=== PATIENT | female | born 1945 | race Caucasian/White ===

== ENCOUNTER 2017-08-01 19:15 | Emergency (ER) | payer MEDICARE ==
[2017-08-01] MEDS ORDERED: Ketorolac Tromethamine 30 MG/ML VIAL ONE (20:48)
[2017-08-01] MEDS ORDERED: Ondansetron ODT 4 MG TAB ONE (20:48)
[2017-08-01] MEDS ORDERED: Dicyclomine 20 MG TAB ONE (20:48)
[2017-08-01 21:10] LABS: #Basophils 0.1 thou/uL (0.0-0.2); #Eosinphils 0.1 thou/uL (0.0-0.7); #Lymphocytes 1.4 thou/uL (1.20-3.40); #Neutrophils 14.1 thou/uL (1.40-6.50); %Basophils 0.5 % (0.0-1.0); %Eosinophils 0.6 % (0.0-10.0); %Lymphocytes 7.7 % (21.0-51.0); %Monocytes 11.3 % (0.0-10.0); %Neutrophils 79.9 % (42.0-75.0); Hemoglobin 14.1 g/dL (12.0-16.0); Mean Corpuscular Volume 87.7 fl (81.0-99.0); Mean Platelet Volume 9.1 fL (7.4-10.4); Platelet Count 270 thou/uL (130-400); RBC Distribution Width 13.2 % (11.5-14.5); Red Blood Cell (RBC) Count 4.86 mill/uL (4.20-5.40); White Blood Cell (WBC) Count 17.6 thou/uL (4.8-10.8)
[2017-08-01 21:23] LABS: ALT (SGPT) 18 U/L (8-55); AST (SGOT) 24 U/L (5-34); Albumin 4.4 g/dL (3.4-4.8); Alkaline Phosphatase 109 U/L (40-150); Anion Gap 14 mmol/L (10-20); BUN (Urea Nitrogen) 12 mg/dL (9.8-20.1); Bilirubin, Total 0.3 mg/dL (0.2-1.2); Calc. Creatinine Clearance 0 mL/min (70-130); Calcium 10.1 mg/dL (7.8-10.44); Carbon Dioxide 29 mmol/L (23-31); Chloride 101 mmol/L (98-107); Estimated GFR-MDRD 48; Glucose 117 mg/dL (83-110); Lipase 23 U/L (8-78); Magnesium 2.2 mg/dL (1.6-2.6); Potassium 4.1 mmol/L (3.5-5.1); Protein, Total 7.4 g/dL (6.0-8.3); Sodium 140 mmol/L (136-145)
== END 2017-08-01 22:39 | disposition home or self-care (01) ==
LOC: ERS 19:15
DX: K57.92 Diverticulitis of intestine, part unspecified, without perforation or abscess without bleeding (principal); E78.5 Hyperlipidemia, unspecified; Z79.899 Other long term (current) drug therapy; Z79.82 Long term (current) use of aspirin
CPT/HCPCS: 36415; 80053; 83605; 83690; 83735; 85025; 93005; 96372; J1885; Q0162

== ENCOUNTER 2017-09-27 10:57 | Emergency (ER) | payer MEDICARE ==
--- NOTE | 2017-09-27 12:20 | RAD ---
CHEST 1 VIEW: Date: 09/27/17 HISTORY: 71-year-old female with abdominal pain and vomiting. No bowel movement or passing gas. COMPARISON: 08/07/17. FINDINGS: Right hemidiaphragm elevation. Heart size is normal. The lungs are clear. IMPRESSION: No acute intrathoracic disease. POS: [facility]
[2017-09-27 12:32] LABS: #Eosinphils 0.2 thou/uL (0.0-0.7); #Lymphocytes 2.4 thou/uL (1.20-3.40); #Monocytes 1.7 thou/uL (0.11-0.59); #Neutrophils 8.1 thou/uL (1.40-6.50); %Basophils 0.3 % (0.0-1.0); %Eosinophils 1.2 % (0.0-10.0); %Lymphocytes 19.5 % (21.0-51.0); %Monocytes 13.4 % (0.0-10.0); %Neutrophils 65.6 % (42.0-75.0); Hemoglobin 13.4 g/dL (12.0-16.0); Mean Corpuscular HGB CONC 32.9 g/dL (32.0-36.0); Mean Corpuscular Hemoglobin 28.9 pg (27.0-31.0); Mean Corpuscular Volume 87.9 fl (81.0-99.0); Mean Platelet Volume 9.9 fL (7.4-10.4); Platelet Count 245 thou/uL (130-400); RBC Distribution Width 13.4 % (11.5-14.5); Red Blood Cell (RBC) Count 4.62 mill/uL (4.20-5.40); White Blood Cell (WBC) Count 12.4 thou/uL (4.8-10.8)
[2017-09-27 12:51] LABS: ALT (SGPT) 16 U/L (8-55); AST (SGOT) 25 U/L (5-34); Albumin 4.2 g/dL (3.4-4.8); Alkaline Phosphatase 81 U/L (40-150); Anion Gap 10 mmol/L (10-20); BUN (Urea Nitrogen) 14 mg/dL (9.8-20.1); Bilirubin, Total 0.4 mg/dL (0.2-1.2); Calc. Creatinine Clearance 0 mL/min (70-130); Calcium 9.8 mg/dL (7.8-10.44); Carbon Dioxide 30 mmol/L (23-31); Chloride 101 mmol/L (98-107); Estimated GFR-MDRD 60; Globulin 2.5 g/dL (2.4-3.5); Glucose 90 mg/dL (83-110); Lipase 47 U/L (8-78); Potassium 4.2 mmol/L (3.5-5.1); Protein, Total 6.7 g/dL (6.0-8.3); Sodium 137 mmol/L (136-145)
[2017-09-27 12:55] LABS: CKMB 0.6 ng/mL (0-6.6); Troponin I Less than 0.010 ng/mL (< 0.028)
--- NOTE | 2017-09-27 15:02 | CT ---
CT OF THE ABDOMEN AND PELVIS WITHOUT IV CONTRAST: INDICATION: A 71-year-old female with abdominal pain and swelling. The patient reports recent episodes of vomiti ng that began Saturday night. The patient is also having constipation and gas. The patient has a h istory of appendicitis and ovarian cancer. COMPARISON: CT of the abdomen and pelvis dated 08/05/14. FINDINGS: The lung bases are clear. The hypodensities involving the right hepatic lobes suspicious for cysts are again noted. The lesion within the segment 5 of the right hepatic lobe on image 18 series 2 measures 2.5 x 2.2 cm where it p reviously measured 2.8 x 1.8 cm. The lesion within segment 6 measures 2 cm on image 18 series 2 wher e it previously measured 2.1 cm. These are slightly smaller than on the comparison exam. Gallbladder is surgically absent. There is postsurgical change of a partial hemicolectomy and ileoco lonic anastomosis. No drainable fluid collection is evident. The bladder, rectum, and perirectal so ft tissues are unremarkable. There is a mild amount of retained stool within the colon. The spleen is surgically absent. There is moderate calcification involving the abdominopelvic vasculature. The adrenal glands appear within normal limits. Unopacified pancreas and kidneys are unremarkable appearing. No hydronephrosi s is evident. There is diffuse osteopenia. There is scattered degenerative and osteoarthritic change. No definite acute osseous abnormality is evident. IMPRESSION: 1. Postoperative changes consistent with partial resection of the cecum and ileocolonic anastomosis. 2. Interval splenectomy and cholecystectomy. 3. Slight interval decrease in size of the right hepatic lobe cyst. 4. Other chronic findings as above. POS: [facility]
== END 2017-09-27 15:05 | disposition home or self-care (01) ==
LOC: ERS 10:57
DX: R11.2 Nausea with vomiting, unspecified (principal); R10.9 Unspecified abdominal pain; K59.00 Constipation, unspecified; Z79.82 Long term (current) use of aspirin; Z79.899 Other long term (current) drug therapy
CPT/HCPCS: 36415; 71045; 74176; 80053; 82553; 83605; 83690; 84484; 85025; 93005

== ENCOUNTER 2017-10-02 11:16 | Emergency (ER) | payer MEDICARE ==
[2017-10-02 12:55] LABS: #Basophils 0.1 thou/uL (0.0-0.2); #Eosinphils 0.1 thou/uL (0.0-0.7); #Lymphocytes 1.9 thou/uL (1.20-3.40); #Monocytes 1.4 thou/uL (0.11-0.59); #Neutrophils 9.3 thou/uL (1.40-6.50); %Basophils 0.5 % (0.0-1.0); %Eosinophils 0.5 % (0.0-10.0); %Lymphocytes 14.7 % (21.0-51.0); %Monocytes 10.8 % (0.0-10.0); %Neutrophils 73.5 % (42.0-75.0); Hemoglobin 15.3 g/dL (12.0-16.0); Mean Corpuscular HGB CONC 32.8 g/dL (32.0-36.0); Mean Corpuscular Hemoglobin 28.5 pg (27.0-31.0); Mean Corpuscular Volume 87.1 fL (78.0-98.0); Mean Platelet Volume 10.5 fL (7.4-10.4); Platelet Count 269 thou/uL (130-400); RBC Distribution Width 13.5 % (11.5-14.5); Red Blood Cell (RBC) Count 5.38 mill/uL (4.20-5.40); White Blood Cell (WBC) Count 12.7 thou/uL (4.8-10.8)
[2017-10-02 13:19] LABS: ALT (SGPT) 32 U/L (8-55); AST (SGOT) 41 U/L (5-34); Albumin 4.5 g/dL (3.4-4.8); Alkaline Phosphatase 98 U/L (40-150); Anion Gap 20 mmol/L (10-20); BUN (Urea Nitrogen) 19 mg/dL (9.8-20.1); Bilirubin, Total 0.5 mg/dL (0.2-1.2); Calc. Creatinine Clearance 0 mL/min (70-130); Calcium 9.9 mg/dL (7.8-10.44); Carbon Dioxide 22 mmol/L (23-31); Chloride 97 mmol/L (98-107); Estimated GFR-MDRD 46; Globulin 3.5 g/dL (2.4-3.5); Glucose 91 mg/dL (83-110); Lipase 30 U/L (8-78); Magnesium 2.8 mg/dL (1.6-2.6); Potassium 5.4 mmol/L (3.5-5.1); Sodium 134 mmol/L (136-145)
[2017-10-02] MEDS ORDERED: Famotidine 20 MG TAB ONE (14:26)
[2017-10-02] MEDS ORDERED: Promethazine HCl 25 MG/ML VIAL ONE (14:26)
[2017-10-02 15:25] LABS: Bilirubin Small (Negative); Blood, Urine Negative (Negative); Clarity CLOUDY (Clear); Glucose, Urine (Dipstick) Negative (Negative); Leukocyte Moderate (Negative); Nitrite Negative (Negative); Protein, Urine (Dipstick) Trace mg/dL (Neg-Trace); Specific Gravity, Urine 1.026 (1.002-1.036); Urobilinogen 0.2 mg/dL (0.2-1.0); pH, Urine 5.5 (5.0-9.0)
[2017-10-02 15:28] LABS: Bacteria/HPF None Seen HPF (None Seen); Pathc Cast-AUWi Flag 1.45 (0-2.49)
[2017-10-02 15:33] LABS: Hyaline Casts/LPF 7-10 HYALINE CAST LPF (0-3 Hyaline)
== END 2017-10-02 16:35 | disposition home or self-care (01) ==
LOC: ERS 11:16
DX: R11.2 Nausea with vomiting, unspecified (principal); R50.9 Fever, unspecified; R19.7 Diarrhea, unspecified; J45.909 Unspecified asthma, uncomplicated; Z79.82 Long term (current) use of aspirin; Z79.899 Other long term (current) drug therapy
CPT/HCPCS: 80053; 81003; 81015; 83690; 83735; 85025; 96361; 96374; J2550

== ENCOUNTER 2018-01-02 10:11 | Outpatient (CLI) | payer MEDICARE ==
--- NOTE | 2018-01-05 17:41 | EKG ---
Test Reason : Blood Pressure : / mmHG Vent. Rate : 073 BPM Atrial Rate : 073 BPM P-R Int : 118 ms QRS Dur : 072 ms QT Int : 348 ms P-R-T Axes : -08 069 058 degrees QTc Int : 383 ms Normal sinus rhythm Normal ECG When compared with ECG of 27-SEP-2017 11:50, No significant change was found Confirmed by APRIL POSEY (2) on 01/05/2018 5:41:37 PM Referred By: TERESO Confirmed By:APRIL POSEY
== END 2018-01-02 10:12 | disposition home or self-care (01) ==
LOC: LABBT 10:11
PROVIDERS: ATTEND Specialist
DX: Z01.818 Encounter for other preprocedural examination (principal); C80.1 Malignant (primary) neoplasm, unspecified
CPT/HCPCS: 93005; 93010

== ENCOUNTER 2018-01-03 06:32 | Day surgery (SDC) | payer MEDICARE ==
[2018-01-02 10:44] VITALS: BMI 23.6
--- NOTE | 2018-01-02 15:36 | HP ---
HISTORY OF PRESENT ILLNESS: Barbara Reaves is a 72-year-old female who reports to me today referred by Dr. Clem Og and Dr. Vera Monteiro for chemotherapy access. 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 She was doing well and saw Dr. Clem Og in [place] for her appendiceal tumo r service for monitoring. The patient has had colonoscopies by Dr. Parker in the past. She is follow ed by Dr. Pang. She has followed by Dr. Clem Og on the Appendiceal Tumor Service at [facility] postoperatively with serial CAT scans, found to have progression of disease, in January 2016 candelario d resection of a portion of her stomach, gallbladder, splenectomy, hysterectomy, oophorectomy, diaphr agmatic scrapings, right tube thoracostomy and underwent HIPEC treatment a 9 hour surgery, discharged 5 days postoperatively. The patient was followed with serial CAT scan, presented with a bowel obstr uction and suspicion of 2 masses and weight loss with CAT scan in the ER [facility] demonstrating multiple areas of concern undergoing laparotomy, adhesiolysis, 11 inches of small bowel resection al dedra with tumor and adhesions, unable to fully resect the tumor. The patient reports the tumor has ev olved to become more aggressive than what it was originally. 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 The patient lives independently and her daughter lives 4 houses down. PAST MEDICAL HISTORY: 1. Hyperlipidemia. 2. History of diverticulitis. 3. History of polyps. 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 5. GERD. 6. Ovarian cancer 2016 with right hemicolectomy, omentectomy, partial. 7. Diagnostic laparoscopy with biopsies 2016. 8. ____ reduction therapy in 2016 with HIPEC. PAST SURGICAL HISTORY: Cholecystectomy, partial gastrectomy, splenectomy, hysterectomy. Small bowel tumor resection, laparotomy 2018, upper and lower endoscopy 2016, tonsillectomy, reduction mammoplas ty, tubal ligation, wisdom tooth extraction. ALLERGIES: None. TOBACCO: None. ALCOHOL: None. MEDICATIONS: Takes sinus medications [id number] Claritin, p.r.n. Tylenol, aspirin, CoQ 10, vit rosario D, biotin, vitamin B. REVIEW OF SYSTEMS: Ten point noncontributory. FAMILY HISTORY: Noncontributory. PHYSICAL EXAMINATION: VITAL SIGNS: Weight 137 pounds, 64 inches, 117/55, 94, 98 degrees. HEENT: Unremarkable. LUNGS: Clear to auscultation. CARDIOVASCULAR: Regular rate and rhythm without murmur or gallop. ABDOMEN: Soft, nontender, well-healed midline incision xiphoid to pubis. No hernias. The abdomen i s soft, nondistended. No tumor masses palpated on physical exam. EXTREMITIES: Without edema. Good palpable pulses. Cranial nerves intact. No neurological deficit. ASSESSMENT AND PLAN: Mucinous adenocarcinoma appendix recurrent tumor status post multiple operation s, now in need of chemotherapy access. We will plan placement of a MediPort. Risks and benefits dis cussed. Followup p.r.n. and she will be seeing Dr. Monteiro on a routine basis and they will call me if they have any problems with the MediPort incision or MediPort function.
[2018-01-03] MEDS ORDERED: Heparin 10,000 UNITS/1 ML VIAL ONE (07:37)
[2018-01-03] MEDS ORDERED: Sodium Chloride 0.9% 0 ML ONE (07:37)
[2018-01-03] MEDS ORDERED: Lidocaine 2% PF Inj 2 ML VIAL ONE (07:37)
[2018-01-03] MEDS ORDERED: Bupivacaine HCl 0.5%/Epinephrine 1:200,000/PF 30 ml Vial ONE (07:37)
[2018-01-03] MEDS ORDERED: CEFAZOLIN/Water 2 GM/20 ML SYRINGE ONE (07:53)
--- NOTE | 2018-01-03 11:45 | RAD ---
AP VIEW CHEST: HISTORY: MediPort placement. FINDINGS: AP view chest is obtained on 01/03/18. Comparison is made to a previous exam from 09/27/17. AP view chest demonstrates placement of a right subclavian MediPort catheter, distal tip overlying th e superior vena cava. The lungs are well aerated. No evidence of active intrathoracic disease is seen. No evidence of eff usions, pneumonia, or pneumothorax seen. IMPRESSION: Unremarkable AP view chest post MediPort placement. POS: [facility]
--- NOTE | 2018-01-03 11:50 | OP ---
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 PROCEDURE: Right subclavian vein low profile MediPort. SURGEON: Dr. Molina Meng ANESTHESIA: TIVA, local 0.5% Marcaine with epinephrine 30 mL mixed with Xylocaine 10 mL. Fluoroscopy used less than 30 seconds. PROCEDURE: The patient was taken to the operating room, in supine position, neck and chest prepared with ChloraPrep, draped in routine fashion. Local anesthetic infiltrated into the skin and subcutane ous tissue about the operative site. Infraclavicular approach used for cannulation of the right subc lavian vein and introducing J wire, removed the trocar catheter and creating an incision, carried joe n skin and subcutaneous tissue, creating a pocket using cautery for hemostasis in the subcutaneous ti ssue. The dilator and pull-away sheath placed over the J-wire into the subclavian vein. Dilator and J-wire removed. Catheter placed with pull-away sheath. Pull-away sheath removed. Fluoroscopically , catheter tip placed in optimal position in the superior vena cava and catheter tailored to length, connected to the MediPort which was placed in subcutaneous pocket and secured with 2 interrupted sutu res of 3-0 Prolene. Subcutaneous tissues approximated with 3-0 Monocryl, skin with subdermal Monocry l and DermaGlue applied. MediPort accessed with a Goncalves needle and aspirated blood and flushed with heparinized saline solution. Final fluoroscopic images revealed good MediPort line placement. The p atient tolerated the procedure well.
== END 2018-01-03 11:50 | disposition home or self-care (01) ==
LOC: SDC 06:32
PROVIDERS: ATTEND Specialist
PROC: 0JH63WZ Insertion of Totally Implantable Vascular Access Device into Chest Subcutaneous Tissue and Fascia, Percutaneous Approach (ICD-10-PCS; principal; 2018-01-03)
DX: C18.1 Malignant neoplasm of appendix (principal); C78.6 Secondary malignant neoplasm of retroperitoneum and peritoneum; E78.5 Hyperlipidemia, unspecified; K21.9 Gastro-esophageal reflux disease without esophagitis; Z86.010 Personal history of colon polyps; Z79.899 Other long term (current) drug therapy; Z91.041 Radiographic dye allergy status; Z88.2 Allergy status to sulfonamides; Z88.5 Allergy status to narcotic agent; Z98.890 Other specified postprocedural states; Z90.49 Acquired absence of other specified parts of digestive tract
CPT/HCPCS: 36561; 71045; C1788; A4216; J0670; J1642; J1644

== ENCOUNTER 2018-01-17 09:38 | Outpatient (CLI) | payer MEDICARE ==
--- NOTE | 2018-01-17 16:37 | SPC ---
RIGHT UPPER EXTREMITY VENOGRAM: 01/17/18 HISTORY: Patient with mild right upper extremity swelling on occasion, and there is also prominent vessels in the right upper chest noted on physical examination. Evaluation for central thrombus or occlusion was requested. FLUOROSCOPY: Total fluoroscopy time is 1.1 minutes with total dose of 329 mGy*cm2. TECHNIQUE: After informed consent was obtained, a peripheral intravenous catheter was placed within the antecubi alex vein. Sterile contrast filled syringe was connected to the intravenous catheter, and venography w as performed. Multiple small collateral vessels are seen without definite visualization of the brachi al or basilic veins. There is multiple collateral vessels about the right upper chest and central ves sels are not opacified on this exam. Given lack of visualization of the main vessels within the right upper extremity, limited sonographic evaluation was performed which demonstrated increased luminal e chogenicity and absence of flow within the right subclavian vein and axillary vein. There are multipl e small venous structures seen within the axillary region, all of which do not demonstrate lumen comp ressibility or flow consistent with thrombus of the axillary and subclavian veins. There are paired b rachial veins, one of which demonstrates lack of lumen compressibility and flow consistent with throm bus, but there is a smaller brachial vein which does demonstrate lumen compressibility and flow. Ther e is absence of flow and lumen compressibility involving the right basilic vein. IMPRESSION: 1. 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 In addition, there is occlusion of one o f the paired brachial veins within the arm above the level of the antecubital fossa. 2. Right subclavian Mediport catheter noted in place. Multiple collateral vessels are seen about the chest likely related to the occluded central vessels. 3. Above findings discussed with Dr. Meng at the termination of this exam on 01/17/18. 1. POS: [facility]
== END 2018-01-17 09:39 | disposition home or self-care (01) ==
LOC: RAD 09:38
PROVIDERS: ATTEND Specialist
DX: C80.1 Malignant (primary) neoplasm, unspecified (principal)
CPT/HCPCS: 36011; 75820; 82565

== ENCOUNTER 2018-03-05 12:28 | Day surgery (SDC) | payer MEDICARE ==
[2018-03-05] MEDS ORDERED: diphenhydrAMINE 25 MG CAP PO SCH (13:15)
[2018-03-05] MEDS ORDERED: Acetaminophen 500 MG TAB PO SCH (13:15)
[2018-03-05 17:49] VITALS: BP 131/61; TEMP 98.6
[2018-03-05 18:48] LABS: Hemoglobin 9.9 g/dL (12.0-16.0); Mean Corpuscular HGB CONC 31.6 g/dL (32.0-36.0); Mean Corpuscular Hemoglobin 29.8 pg (27.0-31.0); Mean Corpuscular Volume 94.4 fL (78.0-98.0); Mean Platelet Volume 8.7 fL (7.4-10.4); Platelet Count 282 thou/uL (130-400); RBC Distribution Width 19.4 % (11.5-14.5); Red Blood Cell (RBC) Count 3.32 mill/uL (4.20-5.40); White Blood Cell (WBC) Count 6.9 thou/uL (4.8-10.8)
[2018-03-05 19:15] LABS: Anisocytosis SLIGHT = 6-15 cells (100X) (0-5/hpf); Band 3 % (5-11); Eosinophils 1 % (0-10); Hypochromia SLIGHT = 6-15 cells (100X) (0-5/hpf); Lymphocytes 5 % (21-51); MDiff Complete? YES; Monocytes 3 % (0-10); Neutrophil 87 % (42-75); Nucleated RBC 2 % (0); PLT Morphology Comment Appears Adequate; Target Cells SLIGHT = 2-5 cells (100X) (0-1/hpf)
== END 2018-03-05 18:45 | disposition home or self-care (01) ==
LOC: ONC/OP 12:28 → ONC 12:32 → ONC/OP 18:45
PROVIDERS: ATTEND Nurse Practitioner Acute Care
DX: D64.9 Anemia, unspecified (principal); D69.6 Thrombocytopenia, unspecified; Z88.1 Allergy status to other antibiotic agents; Z91.041 Radiographic dye allergy status; Z88.2 Allergy status to sulfonamides
CPT/HCPCS: 36415; 36430; 85025; 86850; 86900; 86901; P9016

== ENCOUNTER 2018-03-31 11:39 | Day surgery (SDC) | payer MEDICARE ==
[2018-03-31] MEDS ORDERED: Sodium Chloride 0.9% 20 ML ONE (11:49)
[2018-03-31] MEDS ORDERED: Acetaminophen 500 MG TAB PO SCH (12:30)
[2018-03-31] MEDS ORDERED: diphenhydrAMINE 25 MG CAP PO SCH (12:30)
[2018-03-31 15:30] LABS: Hemoglobin 8.5 g/dL (12.0-16.0)
[2018-03-31 17:58] VITALS: TEMP 98.7
[2018-03-31 18:01] VITALS: BP 141/63
== END 2018-03-31 18:28 | disposition home or self-care (01) ==
LOC: ONC/OP 11:39
PROVIDERS: ATTEND Internal Medicine Hematology & Oncology
PROC: 30233N1 Transfusion of Nonautologous Red Blood Cells into Peripheral Vein, Percutaneous Approach (ICD-10-PCS; principal; 2018-03-31)
DX: D64.9 Anemia, unspecified (principal); D69.6 Thrombocytopenia, unspecified
CPT/HCPCS: 36430; 82728; 85025; 86850; 86900; 86901; P9016

== ENCOUNTER 2018-05-01 13:28 | Outpatient (CLI) | payer MEDICARE ==
--- NOTE | 2018-05-01 14:51 | ULT ---
LEFT UPPER EXTREMITY VENOUS DUPLEX ULTRASOUND INCLUDING COLOR AND SPECTRAL DOPPLER IMAGING: HISTORY: Abnormal CT scan at [facility] demonstrated possible subclavian vein stenosis. Exam performed including the left internal jugular, subclavian, axillary, brachial, and radial and ul jessee veins. Basilic and cephalic veins are patent. No intraluminal thrombus. IMPRESSION: No evidence for left upper extremity deep venous thrombosis. POS: [facility]
== END 2018-05-01 13:29 | disposition home or self-care (01) ==
LOC: ULT 13:28
PROVIDERS: ATTEND Internal Medicine Hematology & Oncology
DX: C18.1 Malignant neoplasm of appendix (principal); C78.4 Secondary malignant neoplasm of small intestine; N18.2 Chronic kidney disease, stage 2 (mild); D50.8 Other iron deficiency anemias

== ENCOUNTER 2019-03-16 14:35 | Outpatient (CLI) | payer MEDICARE ==
--- NOTE | 2019-03-16 15:13 | MMO ---
Bilateral MAMMO Bilat Screen DDI+NAN. CLINICAL HISTORY: Patient is 73 years old and is seen for screening. The patient has no family history of breast cancer. The patient has a history of gi cancer at age 69. The patient has a history of bilateral Breast reduction. VIEWS: The views performed were: bilateral craniocaudal with tomosynthesis and bilateral mediolateral oblique with tomosynthesis. FILMS COMPARED: The present examination has been compared to prior imaging studies performed at [facility] on 01/16/2017, and at [facility] on 07/01/2012 and 08/05/2013. This study has been interpreted with the assistance of computer-aided detection. MAMMOGRAM FINDINGS: The breasts are almost entirely fat. There are stable benign appearing calcifications seen in both breasts. There are no suspicious masses, suspicious calcifications, or new areas of architectural distortion. IMPRESSION: THERE IS NO MAMMOGRAPHIC EVIDENCE OF MALIGNANCY. A ROUTINE FOLLOW-UP MAMMOGRAM IN 1 YEAR IS RECOMMENDED. THE RESULTS OF THIS EXAM WERE SENT TO THE PATIENT. ACR BI-RADS Category 2 - Benign finding MAMMOGRAPHY NOTE: 1. A negative mammogram report should not delay a biopsy if a dominant of clinically suspicious mass is present. 2. Approximately 10% to 15% of breast cancers are not detected by mammography. 3. Adenosis and dense breasts may obscure an underlying neoplasm. Reported by: TAWANNA VILLANUEVA MD Electonically Signed: [id number]
== END 2019-03-16 14:36 | disposition home or self-care (01) ==
LOC: BICMAMMO 14:35
PROVIDERS: ATTEND Internal Medicine Hematology & Oncology
DX: Z12.31 Encounter for screening mammogram for malignant neoplasm of breast (principal); Z85.00 Personal history of malignant neoplasm of unspecified digestive organ; Z98.890 Other specified postprocedural states
CPT/HCPCS: 77063; 77067

== ENCOUNTER 2019-08-10 08:30 | Outpatient (CLI) | payer MEDICARE ==
[2019-08-10] MEDS ORDERED: Iopamidol 370 76% 100 ML VIAL ONE (09:24)
--- NOTE | 2019-08-10 10:44 | CT ---
CT CHEST AND ABDOMEN AND PELVIS WITH IV CONTRAST: DATE: 08/10/2019. PROVIDED CLINICAL HISTORY: Vaginal discharge, history of malignant neoplasm of appendix. FINDINGS: Comparison is made with CT examination from [place] dated 06/08/[address] at [facility] 09/27/2017. The heart, pericardium, and great vessels demonstrate an unremarkable CT appearance with the exceptio n of minimal vascular calcification. There is no evidence for thoracic lymph node enlargement. The lungs are free of significant opacity. The airway appears patent and of normal caliber. No pleural fluid, pleural thickening, or pneumothorax apparent. The liver demonstrates stable cysts as well as subcentimeter hypodensities too small to definitively characterize but also likely reflecting cysts and appearing stable with respect to the 06/08/2019 stud y. The most recent [facility] prior examination was performed in the absence of IV contrast ma terial, limiting comparison. The spleen is again not visualized. Changes of prior cholecystectomy are seen. The pancreas, kidney s, and adrenal glands appear unremarkable. Postoperative changes involving the bowel are redemonstrated. There is no evidence for bowel obstruc tion. No inflammatory fat stranding, free fluid, or lymph node enlargement apparent. There is a 3.1 cm cystic structure present within the midline low pelvis with apparent small mural no dules at its posterior-right lateral margin. This appears similar to the most recent comparison exam ination from [facility]. This was not definitely seen on the prior from [facility] in 2017. The uterus demonstrates prominent internal heterogeneous enhancement and appears enlarged with respec t to the 2018 study and similar in size and appearance from the 06/08/2019 study. The osseous structures demonstrate no concerning lytic or blastic lesions. IMPRESSION: 1. A 3.1 cm complex cystic pelvic mass, which could reflect ovarian neoplasm. 2. Abnormal, heterogeneous enhancement the uterus, which also appears enlarged with respect to its a ppearance on the 2018 study. This is similar to the 2019 [facility] study. This process is incompl etely characterized by CT. Correlation with pelvic ultrasound or MRI may be useful for further tomas cterization. Endometrial or myometrial neoplasm is not excluded on the basis of this study. POS: [facility]
== END 2019-08-10 08:31 | disposition home or self-care (01) ==
LOC: CT 08:30
PROVIDERS: ATTEND Internal Medicine Hematology & Oncology
DX: C18.1 Malignant neoplasm of appendix (principal); C78.4 Secondary malignant neoplasm of small intestine; R19.00 Intra-abdominal and pelvic swelling, mass and lump, unspecified site; N85.2 Hypertrophy of uterus
CPT/HCPCS: 71260; 74177; 82565; Q9967

== ENCOUNTER 2019-09-25 09:29 | Inpatient (IN) | payer MEDICARE ==
[2019-09-25] MEDS ORDERED: Fentanyl 100 MCG/2 ML VIAL ONE ×6 (09:44→19:42)
[2019-09-25] MEDS ORDERED: Adacel (T-DAP) 0.5 ML SYRINGE ONE (09:44)
[2019-09-25] MEDS ORDERED: Ondansetron PF 4 MG/2 ML Vial ONE ×2 (09:53→10:13)
[2019-09-25 10:11] LABS: #Basophils 0.1 thou/uL (0.0-0.2); #Eosinphils 0.2 thou/uL (0.0-0.7); #Lymphocytes 3.7 thou/uL (1.20-3.40); #Monocytes 1.7 thou/uL (0.11-0.59); #Neutrophils 6.7 thou/uL (1.40-6.50); %Basophils 0.4 % (0.0-1.0); %Eosinophils 1.3 % (0.0-10.0); %Lymphocytes 30.2 % (21.0-51.0); %Monocytes 13.4 % (0.0-10.0); %Neutrophils 54.6 % (42.0-75.0); Hemoglobin 13.3 g/dL (12.0-16.0); Mean Corpuscular HGB CONC 32.6 g/dL (32.0-36.0); Mean Corpuscular Hemoglobin 29.3 pg (27.0-31.0); Mean Corpuscular Volume 89.8 fL (78.0-98.0); Mean Platelet Volume 9.3 fL (7.4-10.4); Platelet Count 295 thou/uL (130-400); RBC Distribution Width 15.5 % (11.5-14.5); Red Blood Cell (RBC) Count 4.56 mill/uL (4.20-5.40); White Blood Cell (WBC) Count 12.3 thou/uL (4.8-10.8)
[2019-09-25] MEDS ORDERED: Rocuronium Bromide 10 MG/ML (10ML VIAL) ONE (10:13)
[2019-09-25] MEDS ORDERED: Succinylcholine Chloride 20 MG/ML 10 ml SYRINGE FS ONE (10:13)
[2019-09-25] MEDS ORDERED: PROPOFOL 200 MG/20 ML VIAL ONE (10:13)
[2019-09-25] MEDS ORDERED: Lidocaine 1% PF 5 ML VIAL ONE (10:13)
[2019-09-25] MEDS ORDERED: Dexamethasone 20 MG/5 ML VIAL ONE (10:13)
[2019-09-25] MEDS ORDERED: Glycopyrrolate 0.2 MG/ML 5 ML SYRINGE ONE (10:13)
[2019-09-25 10:17] LABS: INR-International Normal Ratio 1.8; PTT 29.1 sec (22.9-36.1); Prothrombin Time 20.9 sec (12.0-14.7)
[2019-09-25 10:37] LABS: ALT (SGPT) 24 U/L (8-55); AST (SGOT) 25 U/L (5-34); Albumin 4.3 g/dL (3.4-4.8); Alkaline Phosphatase 115 U/L (40-110); Anion Gap 14 mmol/L (10-20); BUN (Urea Nitrogen) 14 mg/dL (9.8-20.1); Bilirubin, Total 0.3 mg/dL (0.2-1.2); Calc. Creatinine Clearance 0 mL/min (70-130); Calcium 9.4 mg/dL (7.8-10.44); Carbon Dioxide 24 mmol/L (23-31); Chloride 105 mmol/L (98-107); Estimated GFR-MDRD 52; Globulin 2.7 g/dL (2.4-3.5); Glucose 111 mg/dL (83-110); Potassium 3.7 mmol/L (3.5-5.1); Sodium 139 mmol/L (136-145)
[2019-09-25] MEDS ORDERED: Ketamine 50 MG/ML (10ML VIAL) ONE (11:17)
[2019-09-25] MEDS ORDERED: Dextrose 5% in Water 1,000 ML IV PRN ×2 (12:04→20:09)
[2019-09-25] MEDS ORDERED: hydrALAZINE 20 MG/ML VIAL SLOW IVP PRN ×2 (12:04→20:10)
[2019-09-25] MEDS ORDERED: Ondansetron PF 4 MG/2 ML Vial IVP PRN ×2 (12:04→18:48)
[2019-09-25] MEDS ORDERED: Dextrose 50% Abboject 50 ML SYRINGE SLOW IVP PRN ×2 (12:04→20:10)
[2019-09-25] MEDS ORDERED: Morphine 2 MG/ML SYRINGE SLOW IVP PRN ×2 (12:04→20:12)
[2019-09-25] MEDS ORDERED: Cyclobenzaprine 10 MG TAB PO PRN ×2 (12:08→20:09)
[2019-09-25] MEDS ORDERED: traMADol HCl 50 MG TAB PO PRN ×3 (12:08→20:15)
[2019-09-25] MEDS ORDERED: Sodium Chloride 0.9% 1,000 ML IV SCH ×2 (12:15→20:30)
--- NOTE | 2019-09-25 12:28 | CT ---
CT OF THE BRAIN WITHOUT CONTRAST: COMPARISON: None. HISTORY: The patient fell on her right bottom with right hip pain and open fracture. The patient hit her fore head. TECHNIQUE: Multiple contiguous axial images were obtained in a CT of the brain without contrast. FINDINGS: There are scattered hypodensities in the subcortical and periventricular white matter, likely seconda ry to small vessel ischemic disease. No large confluent infarction is seen. There is no evidence of hydrocephalus, intracranial hemorrhage, or extraaxial fluid collection. The calvarium and overlying soft tissues were unremarkable. IMPRESSION: No evidence of acute intracranial abnormality. POS: [facility]
--- NOTE | 2019-09-25 13:37 | HP ---
TRAUMA SURGEON: Dr. Grande. CONSULTING PHYSICIAN: Dr. Silva. HISTORY OF PRESENT ILLNESS: The patient is a 73-year-old female, who presented to the emergency department via EMS after a mechanical fall on Xarelto. She was a level 2 trauma activation. The patient reported she was walking her dog when her dog suddenly lunged forward and pulled her forward and she fell forward. She knew immediately that she had injuries to her right leg and right upper extremity. She denies loss of consciousness and reports she takes Xarelto due to a right upper extremity DVT from a PICC line about 2 years ago. The patient reports last taking Xarelto this morning with her other medications. She denies loss of consciousness. She denies numbness and tingling in her bilateral upper and lower extremities. REVIEW OF SYSTEMS: All additional 10-point review of systems is negative except as indicated above. 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 She has had several abdominal surgeries as a result of her cancer as well as chemotherapy, which was recently restarted. The patient also has a history of GERD and right upper extremity DVT. PAST SURGICAL HISTORY: In 2016, the patient had surgery at [facility] for splenectomy, partial colon resection, partial stomach resection as well as cholecystectomy, and hysterectomy. In 2018, she also had a small bowel resection due to a tumor causing a small bowel obstruction. SOCIAL HISTORY: The patient lives at home alone. She does not use any assistive device to get around. Her daughters are involved in her care. She denies tobacco, drug, and alcohol use. MEDICATIONS: 1. Chemotherapy recently restarted. 2. Xarelto. 3. Pantoprazole. 4. Zofran. 5. Lomotil. ALLERGIES: 1. OMEPRAZOLE. 2. SULFA DRUGS. 3. IODINE CONTRAST. 4. ERYTHROMYCIN. 5. HYDROMORPHONE. PHYSICAL EXAMINATION: VITAL SIGNS: Temperature 99.0, pulse 89, respirations 22, oxygen saturation 100% on 2 L nasal cannula, blood pressure 117/62. PRIMARY SURVEY: Airway intact. Adequate breath sounds bilaterally. 2+ pulses in bilateral radials, femorals, and DPs. GCS 15. Gross motor and sensation are intact. The patient has an avulsion laceration to her right medial forearm with bleeding controlled. No other sources or external bleeding noted. SECONDARY SURVEY: HEAD: Normocephalic and atraumatic. No gross palpable skull deformities. EYES: Pupils 3 to 2, equal, round, and reactive to light bilaterally. ENT: No signs of trauma. C-SPINE: No step-offs or deformities or tenderness to palpation of the C-spine. No C-collar in place. CHEST: Nontender. No crepitus. No abrasions or ecchymosis. Equal chest movement. ABDOMEN: Soft, nontender, and nondistended. PELVIS: Stable to palpation. Nontender. No abrasions or ecchymosis. RECTAL: Deferred. GENITOURINARY: Deferred. EXTREMITIES: The patient has an open fracture to her right forearm with bleeding controlled. There is an avulsion laceration to the right medial forearm, that is about 4 cm. The patient also has tenderness over the right anterior thigh. 2+ pulses in bilateral radials, femorals, and DPs. BACK/SPINE: No step-offs, deformities, or tenderness to palpation of the thoracic or lumbar spine. No abrasions or ecchymosis noted. 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 Gross normal sensation x4 extremities. LABORATORY FINDINGS: White count 12.3, hemoglobin 13.3, hematocrit 40.9, platelets 295. INR 1.8. Sodium 139, potassium 3.7, chloride 105, bicarb 24, BUN 14, creatinine 1.03, glucose 111. Troponin less than 0.010. DIAGNOSTIC FINDINGS: CT scan of the brain demonstrates no evidence of acute intracranial abnormalities. CT scan of the C-spine as well as x-rays of the chest, right forearm, right hip and pelvis, official reads are pending. Upon my review, there is a right radius and ulnar fracture as well as a right intertrochanteric femur fracture noted. ASSESSMENT: 1. Status post mechanical fall from standing on Xarelto. 2. Right intertrochanteric femur fracture. 3. Right open radius and ulnar fracture. 4. History of appendiceal cancer with metastasis, and gastroesophageal reflux disease. PLAN: The patient will be admitted to the Trauma Service. Dr. Silva of Orthopedic Surgery is to evaluate the patient and plans to take her to the operating room today. Emergency room physician reports he will wash out and splint the right upper extremity. We will follow up on the final reads of the remaining CT and x-rays. She will be n.p.o. She is to receive 500 mL bolus in the emergency department followed by 1 L at 70 an hour x1. We will restart her home medications as clinically indicated. Continue to hold the Xarelto. We will also order a type and screen if it has not already been completed. Postoperatively, the patient will work with Physical and Occupational Therapy and will likely need placement at an acute rehab facility. Job ID: [id number]
--- NOTE | 2019-09-25 13:43 | CT ---
CT CERVICAL SPINE WITH CORONAL AND SAGITTAL REFORMATIONS: 09/25/19 HISTORY: Injury, neck pain. FINDINGS/IMPRESSION: Multilevel degenerative changes are seen. No acute fracture, subluxation or facet malalignment is see n. Discussed over the telephone with ER physician, Dr. Laurel Polanco at 10:27 a.m. POS: [facility]
--- NOTE | 2019-09-25 13:54 | RAD ---
AP PELVIS: 09/25/19 HISTORY: Fall, right sided hip pain. FINDINGS/IMPRESSION: There is a intertrochanteric fracture involving the right femur. POS: [facility]
--- NOTE | 2019-09-25 13:56 | RAD ---
TWO VIEWS RIGHT HIP: 09/25/19 HISTORY: Fall with right hip pain. FINDINGS: Two views of the right hip shows an intertrochanteric femur fracture. No dislocation of the femoral h ead is seen. No degenerative changes are seen in the right hip. IMPRESSION: Intertrochanteric right femur fracture. POS: [facility]
--- NOTE | 2019-09-25 13:59 | RAD ---
TWO VIEWS OF THE RIGHT FOREARM: 09/25/19 COMPARISON: None. HISTORY: Fall with right arm pain. FINDINGS: Two views of the right forearm shows fracture of the distal third of the radius and ulna. These are o verlapping and foreshortened. IMPRESSION: Distal radius and ulna fractures. POS: [facility]
[2019-09-25] MEDS ORDERED: Ibuprofen 200 MG TAB PO SCH ×2 (14:00→22:00)
--- NOTE | 2019-09-25 14:10 | RAD ---
SINGLE VIEW OF THE CHEST: COMPARISON: 09/27/17 HISTORY: Fall with right arm fracture. FINDINGS: Single view of the chest shows a normal sized cardiomediastinal silhouette. There is a Mediport with its tip in the superior vena cava. There is no evidence of consolidation, mass or pleural effusions. IMPRESSION: No evidence of acute cardiopulmonary disease. POS: [facility]
--- NOTE | 2019-09-25 16:40 | RAD ---
RIGHT FOREARM TWO VIEWS: 09/25/19 HISTORY: Fracture of the right radius and ulna. Post reduction exam. FINDINGS/IMPRESSION: The displaced fractures of the shafts of the radius and ulna do not demonstrate a satisfactory interv al reduction. A cast has been placed. POS: [facility]
--- NOTE | 2019-09-25 17:53 | CON ---
DATE OF CONSULTATION: 09/25/2019 HISTORY OF PRESENT ILLNESS: The patient is a 73-year-old female who lives at home. She was walking her dog on a leash. The dog lunged forward and pulled her forward where she fell onto her right arm and right hip. She had immediate pain in the right forearm and right hip region. The patient states that she has some mild numbness in her hands and feet because of chemotherapy, but no increased neurologic deficits. The patient was brought to the emergency room. X-rays revealed displaced distal right radius and ulnar shaft fractures and an intertrochanteric fracture of the right hip. PAST MEDICAL HISTORY/MEDICAL ILLNESSES: 1. 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 2. Several abdominal surgeries. 3. DVT of the right upper extremity. 4. GERD. 5. The patient has had splenectomy. 6. Partial colon resection. 7. Partial stomach resection. 8. Cholecystectomy. 9. Hysterectomy. 10. Small bowel resection. SOCIAL HISTORY: The patient lives at home alone. She does not use tobacco, alcohol, or drugs. CURRENT MEDICATIONS: 1. Xarelto, which she has been taking for two years for her upper extremity DVT. 2. Her chemotherapy is recently restarted. 3. Pantoprazole. 4. Zofran. 5. Lomotil. ALLERGIES: TO OMEPRAZOLE, SULFA, IODINE CONTRAST, ERYTHROMYCIN, AND HYDROMORPHONE. PHYSICAL EXAMINATION: GENERAL: The patient is a very pleasant female, alert and oriented x3, cooperative with the examination. VITAL SIGNS: Temperature 98.7, pulse 82, respiratory rate 18, O2 saturation 100% on 2 L nasal cannula, and blood pressure 112/64. HEENT: The patient has some bruising over the right eye. Cranial nerves 2 through 12 are grossly intact. Intact. SPINE: She has good range of motion of her neck without pain. She is nontender in thoracic or lumbar spine. LUNGS: Clear bilaterally. HEART: Regular rate and rhythm. ABDOMEN: Soft and nontender. Bowel sounds positive. : Not done. EXTREMITIES: The patient is in a splint on the right upper extremity. She is able to flex and extend her fingers. The right lower extremity is shortened and slightly externally rotated. She is able to flex and extend her ankles and toes. She has palpable pulses in her extremities. LABORATORY DATA: White count is 12.3, hemoglobin 13.3, hematocrit 40.9, and platelets 295,000. INR is 1.8. Chemistries are normal. IMPRESSION: 1. Intertrochanteric fracture of the right hip. 2. Fracture of the right radius and ulnar shafts. 3. History of appendiceal cancer with metastasis. 4. Gastroesophageal reflux disease. PLAN: The patient will be taken to the operating room where she will undergo open reduction and internal fixation of the right radius and ulna and plan on using plate and screws, also ORIF of the intertrochanteric fracture and plan on using a trochanteric fixation nail. The patient's questions were answered and agreed to the procedure. Job ID: [id number]
[2019-09-25] MEDS ORDERED: Fleet Enema 133 ML BOT PR PRN (18:48)
[2019-09-25] MEDS ORDERED: Bisacodyl 10 MG SUPP PR PRN (18:48)
[2019-09-25] MEDS ORDERED: Ondansetron ODT 4 MG TAB PO PRN (18:48)
[2019-09-25] MEDS ORDERED: Milk Of Magnesia 30 ML UDCUP PO PRN ×2 (18:48→20:12)
[2019-09-25] MEDS ORDERED: Cepastat Lozenges 1 LOZ PO PRN (18:48)
[2019-09-25] MEDS ORDERED: Ondansetron HCl/PF 4 MG/2 ML Vial IVP PRN (18:53)
[2019-09-25] MEDS ORDERED: Promethazine HCl 25 MG/ML VIAL IM PRN (18:53)
[2019-09-25] MEDS ORDERED: Promethazine HCl 25 MG/ML VIAL SLOW IVP PRN (18:53)
--- NOTE | 2019-09-25 19:13 | RAD ---
INTRAOPERATIVE FLUOROSCOPY: 09/25/19 HISTORY: ORIF. FINDINGS: Four intraprocedural fluoroscopic views demonstrate placement of a fusion plate with screws along the distal radius and ulna. Near anatomic alignment. Fracture fragments are noted. EXPOSURE: 21.8 seconds. 0.47 mGy. IMPRESSION: Intraoperative fluoroscopy as above. POS: PPP
--- NOTE | 2019-09-25 20:15 | RAD ---
EXAM: INTRAOPERATIVE FLUOROSCOPY: 09/25/19 HISTORY: Right hip fracture, ORIF. FINDINGS: Two intraoperative fluoroscopic views demonstrate placement of a gamma nail and dynamic compression s crew traversing an intertrochanteric fracture. Near anatomic alignment. Fracture lucency is noted. EXPOSURE: 33.3 seconds. 5.43 mGy. IMPRESSION: Intraoperative fluoroscopy as above. POS: PPP
--- NOTE | 2019-09-25 20:47 | HP ---
CHIEF COMPLAINT: Fall. HISTORY OF PRESENT ILLNESS: The patient is a 73-year-old female, who was walking her dog when she lost control, it pulled her and she fell against her right side. She complained of right leg and right upper extremity pain. She is on Xarelto for history of DVT. PAST MEDICAL HISTORY: Significant for appendiceal cancer with metastasis to her cervix, she has had several abdominal surgeries from that. Partial colon resection, partial gastric resection, cholecystectomy, hysterectomy, small bowel resection. MEDICATIONS: Include; 1. Xarelto. 2. Pantoprazole. 3. Zofran. 4. Lomotil. SOCIAL HISTORY: She lives at home alone. No tobacco or alcohol use. ALLERGIES: TO OMEPRAZOLE, SULFA, IODINE, ERYTHROMYCIN, HYDROMORPHONE. PHYSICAL EXAMINATION: VITAL SIGNS: Temperature 99, pulse 89, blood pressure is 117/62. GENERAL: She is awake, alert, in no apparent distress. HEENT: She has a little bruise just to the right of her orbit. Her pupils are equal, round, and reactive. Extraocular motor intact. Pharynx clear. NECK: Supple. Nontender. Trachea midline. CHEST: Nontender. LUNGS: Clear. HEART: Regular rate and rhythm. ABDOMEN: Soft, nondistended, nontender. Pelvis is nontender. EXTREMITIES: She has an open fracture of right forearm, bleeding controlled. Avulsion laceration of right medial forearm, 4 cm. She has tenderness in the right anterior thigh. Good pulses. BACK: Nontender. NEUROLOGIC: Intact. LABORATORY DATA: White count 12, hemoglobin and hematocrit are 13 and 40, and platelet count 295. Electrolytes are fine. Glucose elevated at 111. Her PT is 20.9, INR 1.8, PTT 29.1. Chest x-ray is clear. Brain CT, clear. Cervical spine CT; degenerative changes, no acute fracture or subluxation. Forearm x-ray, distal radius-ulnar fracture. Hip film, intertrochanteric right femur fracture. Pelvis, intertrochanteric fracture of right femur. ASSESSMENT: 1. Open radial-ulnar fracture, right arm. 2. Intertrochanteric femur fracture of right leg. 3. Anticoagulation. 4. History malignancy. PLAN: Admit. Orthopedic consultation. Job ID: [id number]
[2019-09-25] MEDS ORDERED: Famotidine/PF 20 mg/2ml Vial SLOW IVP SCH ×2 (21:00)
[2019-09-25] MEDS ORDERED: Ferrous Gluconate 324 MG TAB PO SCH (21:00)
[2019-09-25] MEDS ORDERED: Senokot S 8.6-50 MG TAB PO SCH (21:00)
[2019-09-25] MEDS: Acetaminophen 500 MG TAB PO SCH ×3 (21:03→23:24)
[2019-09-25] MEDS: Ferrous Gluconate 324 MG TAB PO SCH ×2 (21:03→21:11)
[2019-09-25] MEDS: Senokot S 8.6-50 MG TAB PO SCH (21:04)
[2019-09-25] MEDS: CEFAZOLIN 2 GM in Premix Bag 1 BAG IVPB SCH (21:05)
[2019-09-25] MEDS: traMADol HCl 50 MG TAB PO PRN (22:25)
--- NOTE | 2019-09-25 22:32 | OP ---
DATE OF PROCEDURE: 09/25/2019 PREOPERATIVE DIAGNOSES: 1. Open radius and ulnar shaft fractures of the right forearm. 2. Comminuted intertrochanteric fracture of the right hip. POSTOPERATIVE DIAGNOSES: 1. Open radius and ulnar shaft fractures of the right forearm. 2. Comminuted intertrochanteric fracture of the right hip. PROCEDURES PERFORMED: 1. Irrigation and debridement of the right forearm. 2. Open reduction and internal fixation of the right radial and ulnar shafts. 3. Open reduction and internal fixation of the intertrochanteric fracture of the right hip utilizing a trochanteric fixation nail. ANESTHESIA: General. DESCRIPTION OF PROCEDURE: The patient was given preoperative IV antibiotics and taken to the operating room. Satisfactory general anesthesia was performed. The patient was placed on surgical table. The right upper extremity was sterilely prepped and draped in usual fashion. After exsanguination, tourniquet was raised to 250 mmHg at the right arm. The open wound was over the ulnar aspect of the distal forearm. It was extended proximally and distally and did communicate with the ulnar shaft fracture. The wound was copiously irrigated using a high-speed algologist. The volar radial aspect of the forearm was then opened, and the volar aspect of the radial shaft was exposed. It was reduced and then internally fixed using a [employer]ynthes 6-hole 3.5 mm LCP plate using 3.5 cortical screws and 3.5 locking screws. The ulnar shaft was then reduced and internally fixed with a 6-hole third tubular plate using 3.5 cortical screws. This was all performed under fluoroscopic visualization and showed good reduction of the radius and the ulna. The wounds were then again irrigated and closed using 0 and 2-0 Vicryl, and the skin was closed with skin himanshu. Sterile dressing was applied. The tourniquet was released. The patient was placed in a wrist immobilizer. Then, tourniquet was released and the patient was then transferred to the fracture table. All bony prominences were well padded, and the traction was applied to well-padded right foot and ankle, and C-arm verified good alignment of the comminuted intertrochanteric fracture of the proximal femur. The lateral aspect of the right hip and thigh was then sterilely prepped and draped, and a 2.5 inch incision was made just proximal to the greater trochanter and under fluoroscopic visualization, a guide pin was placed through the greater trochanter into the shaft. It was then over-reamed, and a 170 mm trochanteric fixation nail was inserted into the proximal femur and through a separate incision on the lateral aspect of the thigh that was approximately 1.5 inches in length, an 85 mm helical blade was inserted into the monica and also into the femoral neck and head. It was then locked into place and a 5 mm locking screw was placed into the distal aspect of the monica and also the femoral shaft. This provided excellent fixation for the intertrochanteric fracture. The wounds were then irrigated and closed using #2 Vicryl for the deeper tissue, 0-Vicryl for the fat and subcutaneous tissue, and skin was closed with skin himanshu. Sterile dressing was applied. The patient was taken off the fracture table. She was awakened, extubated, and transferred to recovery room in stable condition. ESTIMATED BLOOD LOSS: 150 mL. COMPLICATIONS: None. Job ID: [id number]
[2019-09-25 23:03] VITALS: BMI 28.7
[2019-09-25] MEDS ORDERED: Ketorolac Tromethamine 30 MG/ML VIAL IVP SCH (23:59)
[2019-09-26] MEDS: Acetaminophen 500 MG TAB PO SCH ×4 (03:23→20:14)
[2019-09-26] MEDS: CEFAZOLIN 2 GM in Premix Bag 1 BAG IVPB SCH (03:23)
[2019-09-26] MEDS ORDERED: Ibuprofen 200 MG TAB PO PRN (04:21)
[2019-09-26] MEDS: traMADol HCl 50 MG TAB PO PRN ×4 (04:33→22:52)
[2019-09-26 06:08] LABS: Hemoglobin 8.9 g/dL (12.0-16.0); Mean Corpuscular HGB CONC 32.9 g/dL (32.0-36.0); Mean Corpuscular Hemoglobin 29.6 pg (27.0-31.0); Mean Corpuscular Volume 89.8 fL (78.0-98.0); Mean Platelet Volume 8.8 fL (7.4-10.4); Platelet Count 214 thou/uL (130-400); RBC Distribution Width 16.1 % (11.5-14.5); White Blood Cell (WBC) Count 11.8 thou/uL (4.8-10.8)
[2019-09-26] MEDS: Multivitamin W/ Minerals 1 TAB PO SCH (08:40)
[2019-09-26] MEDS: Senokot S 8.6-50 MG TAB PO SCH ×2 (08:40→20:15)
[2019-09-26] MEDS: Aspirin 325 MG TAB PO SCH (08:40)
[2019-09-26] MEDS: Ascorbic Acid 500 mg Chewable Tablet PO SCH ×2 (08:40→20:14)
[2019-09-26] MEDS: Ferrous Sulfate 325 MG TAB PO SCH (08:41)
[2019-09-26] MEDS: Polyethylene Glycol 3350 17 GM Packet PO SCH (08:41)
[2019-09-26] MEDS: Ibuprofen 200 MG TAB PO SCH ×2 (08:43→16:45)
[2019-09-26] MEDS ORDERED: Polyethylene Glycol 3350 17 GM Packet PO SCH (09:00)
[2019-09-26] MEDS ORDERED: FERROUS SULFATE PO SCH (09:00)
--- NOTE | 2019-09-26 18:12 | PRG ---
DATE OF SERVICE: 09/26/2019 SUBJECTIVE: The patient was seen this morning. She was sitting up at the edge of the bed. She is postoperative day 1 after fixation of her right open radius and ulna fracture and right intertrochanteric femur fracture. The patient is requesting low-fat, no lactose diet. Otherwise, she tolerated her diet. She is working with Physical Therapy. OBJECTIVE: VITAL SIGNS: Temperature 98.0, pulse 96, respirations 18, oxygen saturation 95% on room air. GENERAL: Well-appearing elderly female, sitting up at the edge of the bed with no signs of acute distress. PULMONARY: Equal chest rise and fall. Clear breath sounds bilaterally. No signs of acute respiratory distress. CARDIAC: Regular rate and rhythm. GI: Abdomen is soft, nontender, and nondistended. EXTREMITIES: 2+ pulses in all extremities. Gross motor and sensation are intact. No significant swelling noted. NEUROLOGIC: GCS is 15. LABORATORY FINDINGS: White count 11.8, hemoglobin 8.9, hematocrit 26.9, platelets 214. DIAGNOSTIC FINDINGS: There are no new diagnostic findings to report. ASSESSMENT: 1. Status post mechanical fall on Xarelto. 2. Right open radius and ulna fracture. 3. Right intertrochanteric femur fracture. 4. History of appendiceal cancer with metastases; deep venous thrombosis to the right upper extremity after central line placement, currently on Xarelto. PLAN: Discontinue regular diet. Start low-fat, no lactose diet. Continue Vargas until tomorrow. Start aspirin 81 mg b.i.d. for DVT prophylaxis. Hold Xarelto. Repeat blood work in the morning. Work with Physical and Occupational Therapy. Restart the patient's home iron, Claritin, and Protonix. Job ID: [id number]
[2019-09-26] MEDS: Loratadine 10 MG TAB PO SCH (20:14)
--- NOTE | 2019-09-26 20:26 | PRG ---
DATE OF SERVICE: 09/26/2019 Ms. Reaves states that her pain is fairly well controlled. She was able to get up with physical therapy today and was able to weight bear on the right lower extremity. She has been working with the therapist with a forearm platform on her walker. She has been talking to her family and is considering going to either a longterm facility or possibly going home, where one of her daughters will take care of her. The patient is afebrile, pulse 96, respiratory rate 18, O2 saturation 95% on room air, blood pressure 141/78. The right hand has swelling as would be expected, but it is neurovascularly intact and the patient is able to flex and extend all of her digits well. The right lower extremity is also neurovascularly intact. The patient will continue to work with physical therapy as far as getting out of bed and ambulating. She can weightbear as tolerated on the right lower extremity. She needs to be nonweightbearing across the right wrist and forearm, but may bear weight over the right elbow with the platform attachment. She will discuss her possibilities after discharge with catalytic case operator. Job ID: [id number]
--- NOTE | 2019-09-27 01:34 | PDOC.BPN ---
- Brief Progress Note DATE OF SERVICE: 09/26/2019 SUBJECTIVE: Ms. Reaves remained in surgical floor. The patient was seen on round this evening. The patient reports pain is controlled. Her urine is adequate. Her vital signs have been stable. OBJECTIVE: GENERAL: Currently, the patient is lying in bed comfortable with no acute respiratory distress. VITAL SIGNS: Stable. LUNGS: Clear bilaterally. HEART: Regular rate and rhythm. ABDOMEN: Soft, nondistended. EXTREMITIES: Neurovascularly intact x4. post op dressing and splint: dry and intact ASSESSMENT: 1. Status post mechanical fall on Xeralto 2. R wrist fracture - S/P repaired 3. R hip fracture S/P repaired 3. History of Appendiceal cancer . DVT upper extremity PLAN: Plan will be to continue supportive care. Continue pain control. Continue DVT prophylaxis and pulmonary toilet. Gastritis prophylaxis. continue to work with Physical Therapy and Occupational Therapy. Anticipate placement in rehabilitation facility or half-way home facility.
[2019-09-27] MEDS: Acetaminophen 500 MG TAB PO SCH ×5 (04:33→23:19)
[2019-09-27 05:25] LABS: Anion Gap 10 mmol/L (10-20); BUN (Urea Nitrogen) 15 mg/dL (9.8-20.1); Calc. Creatinine Clearance 63 mL/min (70-130); Carbon Dioxide 28 mmol/L (23-31); Chloride 102 mmol/L (98-107); Estimated GFR-MDRD 58; Glucose 130 mg/dL (83-110); Magnesium 2.2 mg/dL (1.6-2.6); Phosphorus 2.1 mg/dL (2.3-4.7); Potassium 3.9 mmol/L (3.5-5.1); Sodium 136 mmol/L (136-145)
[2019-09-27 05:29] LABS: Band 6 % (5-11); Eosinophils 3 % (0-10); Hemoglobin 7.3 g/dL (12.0-16.0); Lymphocytes 15 % (21-51); MDiff Complete? YES; Mean Corpuscular HGB CONC 31.4 g/dL (32.0-36.0); Mean Corpuscular Hemoglobin 28.5 pg (27.0-31.0); Mean Corpuscular Volume 90.6 fL (78.0-98.0); Mean Platelet Volume 9.4 fL (7.4-10.4); Monocytes 8 % (0-10); Neutrophil 68 % (42-75); Platelet Count 178 thou/uL (130-400); Platelet Morphology Comment Appears Adequate; RBC Distribution Width 16.2 % (11.5-14.5); RBC Morphology Normal; Red Blood Cell (RBC) Count 2.57 mill/uL (4.20-5.40); White Blood Cell (WBC) Count 12.1 thou/uL (4.8-10.8)
[2019-09-27] MEDS ORDERED: Sodium Phosphate 30 MMOL in Sodium Chloride 0.9% 250 ML 250 ML IVPB SCH (08:30)
[2019-09-27] MEDS: Senokot S 8.6-50 MG TAB PO SCH ×2 (08:52→20:31)
[2019-09-27] MEDS: Multivitamin W/ Minerals 1 TAB PO SCH (08:52)
[2019-09-27] MEDS: Polyethylene Glycol 3350 17 GM Packet PO SCH (08:52)
[2019-09-27] MEDS: Ascorbic Acid 500 mg Chewable Tablet PO SCH ×2 (08:52→20:32)
[2019-09-27] MEDS: Ferrous Sulfate 325 MG TAB PO SCH (08:52)
[2019-09-27] MEDS: Aspirin 325 MG TAB PO SCH (08:52)
--- NOTE | 2019-09-27 12:15 | PRG ---
DATE OF SERVICE: 09/27/2019 SUBJECTIVE: The patient was seen this morning during rounds. She was lying in bed with no signs of acute distress. She reports working with Physical Therapy today, but becoming dizzy when she sat up. The patient became a little bit hypotensive, but then recovered. She is still a little bit woozy from her injury. She was on Xarelto. Otherwise, she is tolerating her diet, and we did discuss at length with her daughter the possibility of needing acute rehab. She would prefer to go home due to coronavirus, but she is willing to have the physical therapist re-evaluate her and speak to Case Management tomorrow. OBJECTIVE: VITAL SIGNS: Temperature 98.0, pulse 93, respirations 18, oxygen saturation 95% on room air, and blood pressure 114/72. GENERAL: Well-appearing elderly female, lying in bed with no signs of acute distress. PULMONARY: Equal chest rise and fall. Clear breath sounds bilaterally. No signs of acute respiratory distress. CARDIAC: Regular rate and rhythm. GI: Abdomen is soft, nontender, nondistended. EXTREMITIES: 2+ pulses in all extremities. Gross motor and sensation are intact. No significant swelling noted. Splint to right upper extremity is in place. NEUROLOGIC: GCS is 15. LABORATORY FINDINGS: White count 12.1, hemoglobin 7.3, hematocrit 23.2, and platelets 178. Sodium 136, potassium 5.9, chloride 102, bicarb 28, BUN 15, creatinine 0.94, glucose 130, phosphorus 2.1, and magnesium 2.0. DIAGNOSTIC FINDINGS: There are no new diagnostic findings to report. ASSESSMENT: 1. Status post mechanical fall, on Xarelto. 2. Right open radius and ulnar fracture, status post repair. 3. Right intertrochanteric femur fracture, status post repair. 4. History of appendiceal cancer with metastasis, deep venous thrombosis to right upper extremity, active PICC line, currently on Xarelto. 5. Acute hypophosphatemia. PLAN: Continue current diet and pain regimen. Continue physical and occupational therapy. The patient to receive additional fluids today with sodium phos. Hopefully, this will also help her blood pressure. She also has been encouraged to eat and drink more. She will continue to work with Physical Therapy. Vargas discontinued. The patient on aspirin right now for DVT prophylaxis. She did have still quite a bit of a hemoglobin drop today. We will monitor that tomorrow and consider restarting her Xarelto if it stabilizes. The patient is considering rehab. She would like to continue to try to improve for another day or so, but we will speak with Case Management about possible placement tomorrow. Job ID: [id number]
[2019-09-27] MEDS ORDERED: Hydrocortisone Sod Succ/PF 100 mg/2 ml Vial IVP SCH (19:15)
[2019-09-27] MEDS: Loratadine 10 MG TAB PO SCH (20:32)
[2019-09-27 22:06] LABS: Hemoglobin 6.6 g/dL (12.0-16.0); Platelet Count 170 thou/uL (130-400)
[2019-09-27] MEDS: Hydrocortisone Sod Succ/PF 100 mg/2 ml Vial IVP SCH (23:19)
--- NOTE | 2019-09-28 01:01 | PRG ---
DATE OF SERVICE: 09/27/2019 SUBJECTIVE: Ms. Reaves remained in surgical floor. The patient was seen on round this evening. The patient reports to have orthostatic. Her blood pressure dropped to high 80. When standing, the patient feels dizzy. The patient also experiencing retention, in which she had in-and out catheterization to resolve the retention. OBJECTIVE: GENERAL: Currently, the patient is lying in bed with no acute respiratory distress. VITAL SIGNS: Stable when lying down. LUNGS: Clear bilaterally. HEART: Regular rate and rhythm. ABDOMEN: Soft and nondistended. EXTREMITIES: Neurovascularly intact x4. Postop dressing clean, dry, and intact. NEUROLOGIC: No focal neurology deficits. LABORATORY DATA: Hemoglobin 6.6 ASSESSMENT: 1. Status post mechanical fall, on Xarelto. 2. Right wrist fracture, status post repair. 3. Right hip fracture, status post repair. 4. Acute adrenal insufficiency. 5. Acute blood loss anemia. 6. History of appendiceal cancer. 7. History of deep venous thrombosis of upper extremity. PLAN: We will transfuse 1 unit of packed red blood cells for acute blood loss anemia. The patient is treated with hydrocortisone for acute adrenal insufficiency. Continue pain control. Continue DVT prophylaxis and pulmonary toilet. Gastritis prophylaxis. Continue working physical therapy and occupational therapy. Placement is pending. Job ID: [id number] MTDD
[2019-09-28] MEDS: Acetaminophen 500 MG TAB PO SCH ×3 (06:02→17:35)
[2019-09-28] MEDS: Hydrocortisone Sod Succ/PF 100 mg/2 ml Vial IVP SCH ×3 (06:02→17:35)
[2019-09-28 06:27] LABS: Hemoglobin 7.8 g/dL (12.0-16.0); Mean Corpuscular HGB CONC 32.5 g/dL (32.0-36.0); Mean Corpuscular Hemoglobin 28.9 pg (27.0-31.0); Mean Corpuscular Volume 88.8 fL (78.0-98.0); Mean Platelet Volume 9.1 fL (7.4-10.4); Platelet Count 172 thou/uL (130-400); RBC Distribution Width 15.5 % (11.5-14.5); Red Blood Cell (RBC) Count 2.68 mill/uL (4.20-5.40); White Blood Cell (WBC) Count 10.5 thou/uL (4.8-10.8)
[2019-09-28 06:34] LABS: Band 20 % (5-11); Lymphocytes 10 % (21-51); MDiff Complete? YES; Monocytes 15 % (0-10); Neutrophil 55 % (42-75); Nucleated RBC 4 % (0); Platelet Morphology Comment Appears Adequate
[2019-09-28] MEDS: Aspirin 325 MG TAB PO SCH (08:08)
[2019-09-28] MEDS: Senokot S 8.6-50 MG TAB PO SCH ×2 (08:08→20:27)
[2019-09-28] MEDS: Ascorbic Acid 500 mg Chewable Tablet PO SCH ×2 (08:08→20:27)
[2019-09-28] MEDS: Multivitamin W/ Minerals 1 TAB PO SCH (08:08)
[2019-09-28] MEDS: Polyethylene Glycol 3350 17 GM Packet PO SCH (08:09)
[2019-09-28] MEDS: Ferrous Sulfate 325 MG TAB PO SCH (08:09)
--- NOTE | 2019-09-28 17:18 | PRG ---
DATE OF SERVICE: 09/28/2019 SUBJECTIVE: The patient was seen and evaluated this morning during morning rounds. She was lying upright in bed with no signs of acute distress. It was discussed with the patient that due to the nature of her current physical state, we strongly recommend continued physical therapy. We are considering either rehab or a swing bed for patient at this time. Her Xarelto is currently being held, which she was taking for prior DVT in her arm. The patient would need to be discharged to a location where her hemoglobin would continued to be monitored and then her Xarelto could be restarted when the hemoglobin is stable. It should be noted that the patient did receive 1 unit of packed red blood cells overnight as her hemoglobin yesterday was 6.6 and it rebounded to 7.8 this morning after the unit. The case management met with the patient this morning and discussed with the patient her wishes. The patient's insurance has been reviewed and a preferred skilled list has been provided to the patient for options for her to continue care with increased therapy for increased strengthening. The only complaint the patient had today was that she feels weak, with getting up to the bathroom causing her fatigue, and thus it was discussed further how increased physical therapy over the next days to weeks would likely help with her strengthening at this time. Otherwise, the patient continues to tolerate a diet and is in good spirits. OBJECTIVE: VITAL SIGNS: Temperature 98.4 Fahrenheit, pulse 80, respiratory rate 18, 100% on room air, blood pressure 139/76. GENERAL: A well-appearing elderly female, lying in bed with no signs of acute distress. PULMONARY: Equal chest rise and fall. Clear to auscultation bilaterally. No signs of acute respiratory distress. CARDIAC: Regular rate and rhythm, no murmurs appreciated. GI: Abdomen is soft , nontender, nondistended, and normal bowel sounds appreciated. EXTREMITIES: 2+ pulses. Splint to right forearm in place. Gross motor and sensation are intact. NEUROLOGIC: GCS is 15. LABORATORY FINDINGS: White count 10.5, hemoglobin 7.8, hematocrit 23.8, platelet count 172, percent neutrophil bands 20%. DIAGNOSTIC FINDINGS: There are no new diagnostic findings to report. ASSESSMENT: 1. Status post mechanical fall, on Xarelto. 2. Right open radius and ulnar fracture, status post repair. 3. Right intertrochanteric femur fracture, status post repair. 4. History of appendiceal cancer with metastasis, deep venous thrombosis to right upper extremity, active. 5. MediPort on right chest, was on Xarelto prior to hospital admission. 6. Acute hypophosphatemia, resolved. 7. Normocytic anemia, likely due to blood loss anemia, status post 1 unit packed red blood cells. PLAN: Continue current diet, bowel, and pain regimen. Continue physical and occupational therapy. The patient received 1 unit of packed red blood cells overnight and her hemoglobin is stable this morning, we will continue to monitor. The patient continues to be on aspirin for now for DVT prophylaxis. We will reconsider restarting her Xarelto when her hemoglobin is stable. Case Management discussed placement with patient today and discussed places for skilled at this time. We will continue to work with Case Management for placement. The patient would likely benefit from rehab or swing bed to help continue to monitor her hemoglobin stabilize while also providing her therapy for additional strengthening. The patient was seen and evaluated on morning rounds and the case was discussed with Dr. Jamison. Job ID: [id number] [facility]
--- NOTE | 2019-09-28 20:03 | PRG ---
DATE OF SERVICE: 09/28/2019 SUBJECTIVE: Ms. Reaves underwent ORIF of the right radial and ulnar shaft as well as ORIF of the intertrochanteric fracture of the right hip. The patient was able to get up with physical therapy three times this morning. Her pain is gradually decreasing. OBJECTIVE: VITAL SIGNS: Her last vital signs; temperature is 98.4, pulse 80, respiratory rate 18, O2 saturation 100% on room air, and blood pressure 156/77. LABORATORY DATA: This morning shows white count 10.5, hemoglobin 7.8, and hematocrit 23.8. The right lower extremity and the right hand are neurovascularly intact. The patient will continue to work with Physical and Occupational Therapy. She is working also with her family and spring encaser as far as post hospitalization placement. The patient will continue with therapy while she is here in the hospital to follow up with me in 2 weeks. Job ID: [id number]
[2019-09-28] MEDS: Loratadine 10 MG TAB PO SCH (20:27)
[2019-09-29] MEDS: Acetaminophen 500 MG TAB PO SCH ×5 (00:36→23:18)
--- NOTE | 2019-09-29 01:48 | PDOC.BPN ---
- Brief Progress Note DATE OF SERVICE: 09/28/2019 SUBJECTIVE: Ms. Reaves remained in surgical floor. The patient was seen on round this evening. The patient orthostatic resolved. Patient's retention also resolved . Patient got 3 bowel OBJECTIVE: GENERAL: Currently, the patient is lying in bed with no acute respiratory distress. VITAL SIGNS: Stable when lying down. LUNGS: Clear bilaterally. HEART: Regular rate and rhythm. ABDOMEN: Soft and nondistended. EXTREMITIES: Neurovascularly intact x4. Postop dressing clean, dry, and intact. NEUROLOGIC: No focal neurology deficits. LABORATORY DATA: Hemoglobin 6.6 ASSESSMENT: 1. Status post mechanical fall, on Xarelto. 2. Right wrist fracture, status post repair. 3. Right hip fracture, status post repair. 4. Acute adrenal insufficiency resolved 5. Acute blood loss anemia improved 6. History of appendiceal cancer. 7. History of deep venous thrombosis of upper extremity. PLAN: Continue pain control . Discontinue hydrocortisone Continue DVT prophylaxis and pulmonary toilet. Gastritis prophylaxis. Continue working physical therapy and occupational therapy. Placement is pending.
[2019-09-29 06:05] LABS: Band 6 % (5-11); Eosinophils 3 % (0-10); Hemoglobin 7.7 g/dL (12.0-16.0); Hypochromia SLIGHT = 6-15 cells (100X) (0-5/hpf); Lymphocytes 15 % (21-51); MDiff Complete? YES; Mean Corpuscular HGB CONC 32.8 g/dL (32.0-36.0); Mean Corpuscular Hemoglobin 29.4 pg (27.0-31.0); Mean Corpuscular Volume 89.6 fL (78.0-98.0); Mean Platelet Volume 8.7 fL (7.4-10.4); Monocytes 10 % (0-10); Neutrophil 66 % (42-75); Nucleated RBC 10 % (0); Platelet Count 214 thou/uL (130-400); Platelet Morphology Comment Appears Adequate; RBC Distribution Width 16.2 % (11.5-14.5); Red Blood Cell (RBC) Count 2.63 mill/uL (4.20-5.40); White Blood Cell (WBC) Count 10.4 thou/uL (4.8-10.8)
[2019-09-29] MEDS: Ascorbic Acid 500 mg Chewable Tablet PO SCH ×2 (08:42→19:39)
[2019-09-29] MEDS: Ferrous Sulfate 325 MG TAB PO SCH (08:42)
[2019-09-29] MEDS: Aspirin 325 MG TAB PO SCH (08:42)
[2019-09-29] MEDS: Multivitamin W/ Minerals 1 TAB PO SCH (08:42)
[2019-09-29] MEDS: Senokot S 8.6-50 MG TAB PO SCH ×2 (08:45→19:39)
[2019-09-29] MEDS: Polyethylene Glycol 3350 17 GM Packet PO SCH (08:45)
--- NOTE | 2019-09-29 16:29 | PRG ---
DATE OF SERVICE: 09/29/2019 SUBJECTIVE: The patient was seen and evaluated this morning during morning rounds. She was lying upright in bed with no signs of acute distress. The patient had no concerns or complaints at this time. She continues to tolerate her diet well, voids and stools well. She also continues to work with Physical Therapy at this time and although none of her goals have been met, she continues to make progress. It has been suggested for the patient to transfer over to the [facility] so that she could be monitored by a physician as this would not be possible at the [facility] at this time. The patient is currently waiting for acceptance for the [facility]. We have discussed that her hemoglobin is stable today and thus if it continues to be stable through tomorrow, then we will restart her Xarelto at that time. The patient continues to do well and is in good spirits. OBJECTIVE: VITAL SIGNS: Temperature 98.6 Fahrenheit, pulse 78, respiratory rate 16, oxygen saturation 100% on room air, blood pressure 149/77. GENERAL: Well-appearing elderly female, lying in bed with no acute signs of distress. PULMONARY: Equal chest rise and fall. Clear to auscultation bilaterally. No signs of acute respiratory distress. CARDIAC: Regular rate and rhythm. No murmurs appreciated. GASTROINTESTINAL: Abdomen is soft, nontender, and nondistended. Normal bowel sounds. EXTREMITIES: 2+ pulses throughout with normal sensation and motor grossly. Splint to right forearm in place. Bandaging to right hip in place. NEUROLOGIC: GCS is 15. LABORATORY FINDINGS: White count 10.4, hemoglobin 7.7, hematocrit 23.5, platelets 214, bands 6. IMAGING STUDIES: No new imaging to report. ASSESSMENT: 1. Status post mechanical fall, on Xarelto. 2. Right open radius and ulnar fracture, status post repair. 3. Right intertrochanteric femur fracture, status post repair. 4. History of metastatic appendiceal cancer, deep venous thrombosis to right upper extremity, and gastroesophageal reflux disease. 5. MediPort on right chest, was on Xarelto prior to hospital administration. 6. Acute hypophosphatemia, resolved. 7. Normocytic anemia, likely due to blood loss anemia, status post 1 unit of packed red blood cells, stable. PLAN: Continue current diet, bowel, and pain regimens. Continue physical and occupational therapy. Continue to monitor hemoglobin and hematocrit, and can consider restarting Xarelto tomorrow if the hemoglobin remains stable at that time. Case Management working for placement for the patient and the patient is considering [facility] at this time for continued physical therapy. We will continue to discuss with Case Management. The patient was seen and evaluated on morning rounds. The case was discussed with Dr. Jamison, who was agreeable with the plan of care. Job ID: [id number] [facility]
[2019-09-29] MEDS: Loratadine 10 MG TAB PO SCH (19:39)
[2019-09-30 03:56] LABS: Band 3 % (5-11); Hemoglobin 8.2 g/dL (12.0-16.0); Lymphocytes 35 % (21-51); MDiff Complete? YES; Mean Corpuscular HGB CONC 32.1 g/dL (32.0-36.0); Mean Corpuscular Volume 90.2 fL (78.0-98.0); Mean Platelet Volume 8.6 fL (7.4-10.4); Monocytes 14 % (0-10); Neutrophil 48 % (42-75); Nucleated RBC 8 % (0); Platelet Count 242 thou/uL (130-400); Platelet Morphology Comment Appears Adequate; RBC Distribution Width 16.5 % (11.5-14.5); Red Blood Cell (RBC) Count 2.83 mill/uL (4.20-5.40); White Blood Cell (WBC) Count 9.3 thou/uL (4.8-10.8)
[2019-09-30 04:07] LABS: Anion Gap 13 mmol/L (10-20); BUN (Urea Nitrogen) 16 mg/dL (9.8-20.1); Calc. Creatinine Clearance 75 mL/min (70-130); Calcium 8.2 mg/dL (7.8-10.44); Carbon Dioxide 25 mmol/L (23-31); Chloride 108 mmol/L (98-107); Estimated GFR-MDRD 71; Glucose 95 mg/dL (83-110); Magnesium 2.1 mg/dL (1.6-2.6); Potassium 3.7 mmol/L (3.5-5.1); Sodium 142 mmol/L (136-145)
[2019-09-30] MEDS: Acetaminophen 500 MG TAB PO SCH ×4 (06:27→23:52)
[2019-09-30] MEDS ORDERED: Potassium Chloride 20 MEQ TAB PO SCH (07:00)
[2019-09-30] MEDS: Ascorbic Acid 500 mg Chewable Tablet PO SCH ×2 (08:48→20:44)
[2019-09-30] MEDS: Multivitamin W/ Minerals 1 TAB PO SCH (08:48)
[2019-09-30] MEDS: Ferrous Sulfate 325 MG TAB PO SCH (08:48)
[2019-09-30] MEDS: Rivaroxaban 10 MG TAB PO SCH (08:49)
[2019-09-30] MEDS: Senokot S 8.6-50 MG TAB PO SCH (08:49)
[2019-09-30] MEDS: Aspirin 325 MG TAB PO SCH (08:49)
[2019-09-30] MEDS: Polyethylene Glycol 3350 17 GM Packet PO SCH (08:49)
[2019-09-30] MEDS ORDERED: Non-Formulary Item 1 EACH (Rivaroxaban [Xarelto] 20 MG) PO SCH (09:00)
[2019-09-30] MEDS ORDERED: Preparation H Ointment 28 GM TUBE TOP PRN (11:03)
[2019-09-30] MEDS: Loperamide HCl 2 MG CAP PO PRN ×2 (11:07→13:15)
--- NOTE | 2019-09-30 16:03 | PRG ---
DATE OF SERVICE: 09/30/2019 SUBJECTIVE: The patient was evaluated today during morning rounds. She was sitting upright in the chair next to the bed, in no acute distress at this time. She reports that she started to have diarrhea yesterday. She reports that this is a chronic issue for her at home, where she will go intermittently between diarrhea and constipation. She reports that she usually takes Imodium and Lomotil at home, which were both started today. She continues to work well with physical therapy at this time. She reports slight right thumb numbness, but this has been constant since her surgery. She does endorse complete movement of all her fingers and otherwise normal sensation of her hand. We are currently waiting for acceptance to the [facility] bed for patient. It was discussed that her hemoglobin was stable overnight and her Xarelto was restarted this morning, and we will continue to monitor her hemoglobin status on the Xarelto. OBJECTIVE: VITAL SIGNS: Temperature 98 Fahrenheit, pulse 85, respiratory rate 14, 99% on room air, blood pressure 124/75. GENERAL: Elderly female sitting upright in chair next to bed, in no acute distress. HEENT: Normocephalic and atraumatic. Trachea midline. RESPIRATORY: Equal rise and fall, clear to auscultation bilaterally. CARDIAC: Regular rate and rhythm. ABDOMEN: Soft, nontender, positive bowel sounds. MUSCULOSKELETAL: Right arm in Jose bandaging and splint at this time. Some numbness of her right thumb on the dorsal side. Otherwise, sensation intact and motor intact throughout. NEUROLOGIC: Sensation and motor intact throughout unless otherwise described. PSYCH: A and O x4. LABORATORY FINDINGS: White count 9.3, hemoglobin 8.2, hematocrit 25.5, platelet 242. Sodium 142, potassium 3.7, chloride 108, carbon dioxide 25, BUN 16, creatinine 0.79, GFR 71, phosphorus 3.0, Mag 2.1. DIAGNOSTIC IMAGING: None. ASSESSMENT: 1. Status post mechanical fall, on Xarelto. 2. Right open radius and ulna fracture, status post repair. 3. Right intertrochanteric femur fracture, status post repair. 4. History of metastatic appendiceal cancer, deep venous thrombosis to right upper extremity, and gastroesophageal reflux disease. 5. MediPort on right chest, was on Xarelto prior to hospitalization. 6. Acute hypophosphatemia, resolved. 7. Normocytic anemia, likely due to blood loss anemia, status post 1 unit of packed red blood cells, stable. PLAN: Continue current diet and pain regimen. We will hold stool softeners, and add Imodium and Lomotil to patient's regimen. We will continue physical and occupational therapy at this time. The patient's hemoglobin has remained stable and we restarted Xarelto at this time. Case management working for placement for the patient with goal for her to go to the swing bed in [place] for continued monitoring of her hemoglobin and hematocrit over the next several days. The patient was seen and evaluated on morning rounds by Dr. Jamison and the case was discussed with him, who was agreeable with the plan of care. Job ID: [id number] [facility]
[2019-09-30 17:44] LABS: Bilirubin Negative (Negative); Blood, Urine Moderate (Negative); Glucose, Urine (Dipstick) Negative (Negative); Leukocyte Small (Negative); Nitrite Positive (Negative); Protein, Urine (Dipstick) Trace mg/dL (Neg-Trace); Urobilinogen 0.2 mg/dL (Less than 2)
[2019-09-30 17:47] LABS: Clarity Turbid (Clear)
[2019-09-30 17:50] LABS: Bacteria/HPF 4+ HPF (None Seen); Squamous Epithelial 0-3 HPF (0-3); Transitional Epithelial 0-3 HPF (None Seen); WBC/HPF 21-50 HPF (0-3)
[2019-09-30 17:51] LABS: Urine Culture Reflex Yes Yes
[2019-09-30] MEDS: Loratadine 10 MG TAB PO SCH (20:43)
[2019-09-30] MEDS: Ciprofloxacin 500 MG TAB PO SCH (20:44)
--- NOTE | 2019-09-30 21:16 | PRG ---
DATE OF SERVICE: 09/30/2019 SUBJECTIVE: Ms. Reaves is status post ORIF of a right hip fracture and right distal radius and ulnar shaft fractures. The patient states that she is doing well. She has good pain control. OBJECTIVE: VITAL SIGNS: Her last vital signs; temperature 97.9, pulse 82, respiratory rate 18, blood pressure 139/66, and O2 saturation 97% on room air. LABORATORY DATA: White count is 9.3, hemoglobin 8.2, and hematocrit 25.5. Dressing was changed on the right wrist. The incision over the radius and ulna is healing very well. The patient is able to flex and extend all of her digits well. PLAN: The patient is having arrangements made to go to [facility] bed. She will follow up with me in 2 to 3 weeks from the surgeries. She can weightbear as tolerated on the right lower extremity, but needs to avoid any type of weightbearing across the right forearm. Job ID: [id number]
[2019-10-01] MEDS: Acetaminophen 500 MG TAB PO SCH ×2 (06:08→13:44)
[2019-10-01] MEDS: Ciprofloxacin 500 MG TAB PO SCH (06:08)
[2019-10-01 06:54] LABS: Band 3 % (5-11); Eosinophils 1 % (0-10); Hemoglobin 8.2 g/dL (12.0-16.0); Hypochromia SLIGHT = 6-15 cells (100X) (0-5/hpf); Lymphocytes 13 % (21-51); MDiff Complete? YES; Mean Corpuscular HGB CONC 32.7 g/dL (32.0-36.0); Mean Corpuscular Hemoglobin 30.1 pg (27.0-31.0); Mean Corpuscular Volume 91.9 fL (78.0-98.0); Mean Platelet Volume 8.9 fL (7.4-10.4); Monocytes 9 % (0-10); Neutrophil 74 % (42-75); Nucleated RBC 22 % (0); Platelet Count 270 thou/uL (130-400); Platelet Morphology Comment Appears Adequate; RBC Distribution Width 18.4 % (11.5-14.5); Red Blood Cell (RBC) Count 2.74 mill/uL (4.20-5.40); White Blood Cell (WBC) Count 8.1 thou/uL (4.8-10.8)
[2019-10-01] MEDS: Rivaroxaban 10 MG TAB PO SCH (09:02)
[2019-10-01] MEDS: Ascorbic Acid 500 mg Chewable Tablet PO SCH (09:02)
[2019-10-01] MEDS: Multivitamin W/ Minerals 1 TAB PO SCH (09:02)
[2019-10-01] MEDS: Ferrous Sulfate 325 MG TAB PO SCH (09:06)
[2019-10-01] MEDS: Polyethylene Glycol 3350 17 GM Packet PO SCH (11:17)
[2019-10-01 16:06] VITALS: BP 124/74; TEMP 98.1
--- NOTE | 2019-10-01 20:52 | DIS ---
DATE OF ADMISSION: 09/25/2019 DATE OF DISCHARGE: 10/01/2019 ADMISSION DIAGNOSES: Mechanical fall, on Xarelto, right open radius and ulnar fracture, right intertrochanteric femur fracture. DISCHARGE DIAGNOSES: Mechanical fall, on Xarelto, right open radius and ulnar fracture, right intertrochanteric femur fracture with the addition of urinary tract infection, complicated. CONSULTING PHYSICIAN: Dr. Silva of Orthopedic Surgery. PROCEDURES: The patient went to the OR on September 25, 2019, and had I and D of the right forearm, ORIF of the right radial and ulnar shafts, and ORIF of the right intertrochanteric fracture with nail. HOSPITAL COURSE: The patient is a 73-year-old female who presented after mechanical fall, on Xarelto, as a level 2 trauma activation. She had a right open radius and ulnar fracture, right intertrochanteric femur fracture and was admitted to the hospital, went to the OR the same day with Dr. Silva. Postoperatively, the patient worked with Physical and Occupational Therapy. She was ultimately discharged to a swing bed. 2 days before discharge, the patient reported burning with urination and was found to have urinary tract infection. She was started on Cipro for 7 days. At the time of discharge, the patient's pain was well controlled. She was tolerating a regular diet, voiding without difficulties, working with Physical Therapy and her home Xarelto had been restarted. DISCHARGE DISPOSITION: Swing bed. DISCHARGE CONDITION: Satisfactory. PHYSICAL EXAMINATION: VITAL SIGNS: Temperature 98.2, pulse 83, respirations 16, oxygen saturation 97 % on room air, and blood pressure 105/66. GENERAL: Well-appearing elderly female, sitting up in bed with no signs of acute distress. PULMONARY: Equal chest rise and fall. Clear breath sounds bilaterally. No signs of acute respiratory distress. CARDIAC: Regular rate and rhythm. GI: Abdomen is soft, nontender, nondistended. EXTREMITIES: 2+ pulses in all extremities. Gross motor and sensation are intact. No significant swelling noted. NEUROLOGIC: GCS 15. DISCHARGE INSTRUCTIONS: The patient was discharged to a swing bed. Activity as tolerated. Nonweightbearing in the right upper extremity with a platform walker. She had a low-fat diet. PT/OT. Incentive spirometry and a walker. DISCHARGE MEDICATIONS: Include: 1. Tylenol. 2. Vitamin C. 3. Biotin. 4. Calcium carbonate. 5. Vitamin D. 6. Cipro x7 days. 7. Lomotil. 8. Ferrous sulfate. 9. Glucosamine-Chondroitin complex. 10. Imodium. 11. Claritin. 12. Multivitamins. 13. Protonix. 14. MiraLAX. 15. Compazine. 16. Xarelto. 17. Tramadol. FOLLOWUP APPOINTMENTS: The patient is to follow up with Dr. Silva. No followup needed with [facility]uma [facility]. This is a summary of the patient's hospitalization. For full details, please see her medical record in its entirety. The patient was seen and evaluated by Dr. Jamison and myself on the day of discharge. Job ID: [id number] [facility]
--- NOTE | 2019-10-03 12:15 | EKG ---
Test Reason : Blood Pressure : / mmHG Vent. Rate : 093 BPM Atrial Rate : 093 BPM P-R Int : 146 ms QRS Dur : 082 ms QT Int : 350 ms P-R-T Axes : 066 048 048 degrees QTc Int : 435 ms Normal sinus rhythm Normal ECG Confirmed by JO ANN HORVATH DO ([id number]), slot editor RENNY MESA ([id number]) on 10/03/2019 12:15:22 PM Referred By: Confirmed By:JO ANN HORVATH DO
== END 2019-10-01 17:00 | disposition swing bed (61) | DRG 956 ==
LOC: ERS 09:29 → SDC/OP 19:15 → SURG A 19:19
PROVIDERS: ADMIT Surgery; ATTEND Surgery
PROC: 0QS604Z Reposition Right Upper Femur with Internal Fixation Device, Open Approach (ICD-10-PCS; principal; 2019-09-25)
PROC: 0PSH04Z Reposition Right Radius with Internal Fixation Device, Open Approach (ICD-10-PCS; 2019-09-25)
PROC: 0PSK04Z Reposition Right Ulna with Internal Fixation Device, Open Approach (ICD-10-PCS; 2019-09-25)
PROC: 30233N1 Transfusion of Nonautologous Red Blood Cells into Peripheral Vein, Percutaneous Approach (ICD-10-PCS; 2019-09-27)
DX: S72.141A Displaced intertrochanteric fracture of right femur, initial encounter for closed fracture (principal); S52.501B Unspecified fracture of the lower end of right radius, initial encounter for open fracture type I or II; S52.601B Unspecified fracture of lower end of right ulna, initial encounter for open fracture type I or II; E27.40 Unspecified adrenocortical insufficiency; D62 Acute posthemorrhagic anemia; N39.0 Urinary tract infection, site not specified; W18.39XA Other fall on same level, initial encounter; K21.9 Gastro-esophageal reflux disease without esophagitis; E83.39 Other disorders of phosphorus metabolism; Y93.K1 Activity, walking an animal; Z85.41 Personal history of malignant neoplasm of cervix uteri; Z85.89 Personal history of malignant neoplasm of other organs and systems; Z86.718 Personal history of other venous thrombosis and embolism; Z92.21 Personal history of antineoplastic chemotherapy; Z90.49 Acquired absence of other specified parts of digestive tract; Z90.81 Acquired absence of spleen; Z88.2 Allergy status to sulfonamides; Z88.1 Allergy status to other antibiotic agents; Z88.8 Allergy status to other drugs, medicaments and biological substances; Z91.041 Radiographic dye allergy status; Z79.01 Long term (current) use of anticoagulants; Z90.710 Acquired absence of both cervix and uterus
CPT/HCPCS: 25505; 25535; 36415; 36430; 70450; 71045; 72125; 72170; 76000; 80048; 80053; 81001; 82533; 83735; 84100; 84484; 85025; 85027; 85610; 85730; 86850; 86900; 86901; 87077; 87086; 87186; 90471; 90715; 93005; 96365; 96375; 96376; 99152; C1713; G0390; J0690; J1100; J1720; J2001; J2270; J2405; J2704; J3010; J7050; P9016; S0028

== ENCOUNTER 2020-04-13 09:15 | Outpatient (CLI) | payer MEDICARE ==
--- NOTE | 2020-04-13 10:41 | CT ---
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 COMPARISON: 01/13/2020 and on 06/04/2018 FINDINGS: CT THORAX: Lungs: Minimal symmetric biapical pleural and parenchymal scarring. No discrete pulmonary nodule, mas s, or pleural effusion is identified. A pleural-based tiny calcification is seen at the posteromedial right lung base. Large airways are patent. Pleura: No pleural effusion. Lymph nodes: No lymphadenopathy. Mediastinum: Right subclavian Mediport catheter remains in place. Vascular calcifications are seen in the thoracic aorta. Chest wall: Postoperative changes of each breast are seen. CT ABDOMEN AND PELVIS: Liver: Stable hepatic cysts are again present. There are a few scattered subcentimeter too small to c haracterize hypodense lesions also again seen in each lobe of the liver. Gallbladder: Surgically absent.\ Pancreas: Within normal limits. Spleen:Surgically absent. Adrenal glands: Within normal limits. Kidneys: Within normal limits. Urinary Bladder: The urinary bladder is unremarkable. Reproductive organs: There are low-attenuation cystic areas seen in the region of the expected locati on of the uterus. However, the patient gives report of a prior hysterectomy. Correlation for evidence of prior hysterectomy is recommended. If the patient has had prior hysterectomy, this may re present a complex cystic masslike lesion involving the cervix measuring 4.3 cm x 3.5 cm in axial dimensions. A 1.4 cm hypodense cystic appearing structure projects posteriorly from this structure as well which does abut the region of the rectosigmoid junction. Bowel: Normal in caliber. Adenopathy:No lymphadenopathy within the abdomen or pelvis. Peritoneum: Again noted is a hypodense cystic appearing structure in the central lower pelvis measuri ng 3.1 cm with associated calcification at the superior margin of this cystic structure. This is superior to the level of the urinary bladder. Abdominal wall: Midline scarring in the infraumbilical location. Osseous structures: Postoperative changes right hip. Degenerative changes are noted in the lumbar spi ne. No suspicious lytic or sclerotic osseous lesions are seen. IMPRESSION: Stable CT scan chest, abdomen, and pelvis including cystic masslike structure in the midline inferior pelvis with heterogeneity and cystic appearing area within the expected location of the uterus. However, the patient does report history of a prior hysterectomy. Correlation with prior surgical his tory is recommended. If this does not represent the patient's uterus, this may represent a complex cystic masslike lesion involving the region of the cervix. A hypodense cystic appearing structure pro jects posteriorly from this structure as well and abuts the region of the rectosigmoid junction.
== END 2020-04-13 09:16 | disposition home or self-care (01) ==
LOC: CT 09:15
PROVIDERS: ATTEND Internal Medicine Hematology & Oncology
DX: C78.4 Secondary malignant neoplasm of small intestine (principal); C18.1 Malignant neoplasm of appendix
CPT/HCPCS: 71260; 74177; 82565

== ENCOUNTER 2020-07-21 09:36 | Outpatient (CLI) | payer MEDICARE | END 2020-07-21 09:37 | disposition home or self-care (01) | LOC: BICRAD 09:36 | PROVIDERS: ATTEND Internal Medicine Hematology & Oncology | DX: D50.9 Iron deficiency anemia, unspecified (principal); C18.1 Malignant neoplasm of appendix; C78.4 Secondary malignant neoplasm of small intestine; D50.8 Other iron deficiency anemias; N39.0 Urinary tract infection, site not specified | CPT/HCPCS: 71046; 81001; 87086 ==

== ENCOUNTER 2020-07-28 07:55 | Outpatient (CLI) | payer MEDICARE ==
[2020-07-28] MEDS ORDERED: Iopamidol 370 76% 100 ML VIAL ONE (12:56)
== END 2020-07-28 07:56 | disposition home or self-care (01) ==
LOC: CT 07:55
PROVIDERS: ATTEND Internal Medicine Hematology & Oncology
DX: C18.1 Malignant neoplasm of appendix (principal); C78.4 Secondary malignant neoplasm of small intestine; K76.89 Other specified diseases of liver
CPT/HCPCS: 71260; 74177; 82565; Q9967

== ENCOUNTER 2021-09-12 07:30 | Outpatient (CLI) | payer MEDICARE ==
[2021-09-12] MEDS ORDERED: Iopamidol 370 76% 100 ML VIAL ONE (09:53)
== END 2021-09-12 07:31 | disposition home or self-care (01) ==
LOC: CT 07:30
PROVIDERS: ATTEND Nurse Practitioner Family
DX: C26.9 Malignant neoplasm of ill-defined sites within the digestive system (principal); R19.5 Other fecal abnormalities; N94.89 Other specified conditions associated with female genital organs and menstrual cycle
CPT/HCPCS: 71275; 74178; Q9967

== ENCOUNTER 2021-11-14 13:30 | Outpatient (CLI) | payer MEDICARE | END 2021-11-14 13:31 | disposition home or self-care (01) | LOC: BICRAD 13:30 | PROVIDERS: ATTEND Physician Assistant Medical | DX: K59.09 Other constipation (principal); K64.9 Unspecified hemorrhoids; C18.1 Malignant neoplasm of appendix; C78.4 Secondary malignant neoplasm of small intestine; N39.0 Urinary tract infection, site not specified | CPT/HCPCS: 74019; 81001; 87086 ==

== ENCOUNTER 2021-12-28 15:10 | Inpatient (IN) | payer MEDICARE ==
[~2021-12-28 15:10] MED LIST: Iopamidol-370 76% 500 ML 1 ML ONE
[2021-12-28] MEDS ORDERED: diphenhydrAMINE 50 MG/ML VIAL ONE (15:59)
[2021-12-28] MEDS ORDERED: methylPREDNISolone Sod Succ 40 MG VIAL ONE (15:59)
[2021-12-28] MEDS ORDERED: Famotidine/PF 20 mg/2ml Vial ONE (15:59)
[2021-12-28 16:09] LABS: Hemoglobin 9.2 g/dL (12.0-16.0); Mean Corpuscular HGB CONC 31.4 g/dL (32.0-36.0); Mean Corpuscular Hemoglobin 26.3 pg (27.0-31.0); Mean Corpuscular Volume 83.8 fL (78.0-98.0); Mean Platelet Volume 9.8 fL (7.4-10.4); Platelet Count 443 thou/uL (130-400); RBC Distribution Width 16.1 % (11.5-14.5); Red Blood Cell (RBC) Count 3.48 mill/uL (4.20-5.40); White Blood Cell (WBC) Count 21.5 thou/uL (4.8-10.8)
[2021-12-28 16:28] LABS: ALT (SGPT) 13 U/L (8-55); AST (SGOT) 19 U/L (5-34); Albumin 3.1 g/dL (3.4-4.8); Alkaline Phosphatase 159 U/L (40-110); Anion Gap 14 mmol/L (10-20); BUN (Urea Nitrogen) 10 mg/dL (9.8-20.1); Bilirubin, Total 0.3 mg/dL (0.2-1.2); Calc. Creatinine Clearance 0 mL/min (70-130); Calcium 8.4 mg/dL (7.8-10.44); Carbon Dioxide 24 mmol/L (23-31); Chloride 101 mmol/L (98-107); Estimated GFR 73; Globulin 3.1 g/dL (2.4-3.5); Glucose 148 mg/dL (83-110); Lipase 9 U/L (8-78); Magnesium 1.5 mg/dL (1.6-2.6); Potassium 3.3 mmol/L (3.5-5.1); Protein, Total 6.2 g/dL (5.8-8.1); Sodium 136 mmol/L (136-145)
[2021-12-28] MEDS ORDERED: Cefepime 2 GM VIAL ONE (16:29)
[2021-12-28 16:36] LABS: Anisocytosis SLIGHT = 6-15 cells (100X) (0-5/hpf); Band 12 % (5-11); Eosinophils 2 % (0-10); Hypochromia SLIGHT = 6-15 cells (100X) (0-5/hpf); Lymphocytes 4 % (21-51); MDiff Complete? YES; Monocytes 6 % (0-10); Neutrophil 74 % (42-75); Nucleated RBC 1 % (0); Platelet Morphology Comment Appears Increased; Polychromasia MODERATE = 3-4 cells (100X) (0-2/hpf); Target Cells SLIGHT = 2-5 cells (100X) (0-1/hpf); Tear Drops SLIGHT = 2-5 cells (100X) (0-1/hpf); Vacuoles SLIGHT
[2021-12-28 17:45] LABS: Bacteria/HPF 1+ HPF (None Seen); Bilirubin Negative (Negative); Blood, Urine Negative (Negative); Clarity Clear (Clear); Glucose, Urine (Dipstick) Normal (Negative); Ketone, Urine Negative (Negative); Leukocyte 250 Leu/uL (Negative); Nitrite 2+ (Negative); Protein, Urine (Dipstick) Negative (Neg-Trace); RBC/HPF 0-3 HPF (0-3); Squamous Epithelial 0-3 HPF (0-3); Urobilinogen Normal mg/dL (Less than 2); WBC/HPF 21-50 HPF (0-3)
[2021-12-28] MEDS ORDERED: Magnesium 2 GM/50 ML(in water) 2 GM in Premix Bag 1 BAG IVPB SCH (17:45)
[2021-12-28] MEDS ORDERED: Gabapentin 300 MG CAP PO SCH (17:45)
[2021-12-28] MEDS ORDERED: VANCOMYCIN 1.75 GM/500 ML BAG 1.75 GM in Premix Bag 1 BAG IVPB SCH (19:00)
[2021-12-28] MEDS ORDERED: Acetaminophen 325 MG TAB PO PRN (20:07)
[2021-12-28] MEDS ORDERED: Potassium Chloride 20 MEQ TAB PO SCH (20:15)
[2021-12-28] MEDS ORDERED: Vancomycin 1 GM in Premix Bag 1 BAG IVPB SCH (21:00)
[2021-12-28] MEDS: Sodium Chloride 0.9% 1,000 ML IV SCH (22:20)
[2021-12-28] MEDS: Gabapentin 300 MG CAP PO SCH (22:20)
[2021-12-28 22:23] VITALS: BMI 26.6
[2021-12-28] MEDS ORDERED: Piperacillin/Tazobactam 3.375 GM in Sodium Chloride 0.9% 100 ML IVPB SCH (23:59)
[2021-12-29] MEDS: Piperacillin/Tazobactam 3.375 GM in Sodium Chloride 0.9% 100 ML IVPB SCH ×3 (04:14→19:34)
[2021-12-29 05:39] LABS: #Lymphocytes 2.3 thou/uL (1.20-3.40); #Monocytes 1.2 thou/uL (0.11-0.59); #Neutrophils 11.8 thou/uL (1.40-6.50); %Basophils 0.2 % (0.0-1.0); %Eosinophils 0.1 % (0.0-10.0); %Lymphocytes 14.8 % (21.0-51.0); %Monocytes 7.8 % (0.0-10.0); Hemoglobin 8.5 g/dL (12.0-16.0); Mean Corpuscular HGB CONC 30.8 g/dL (32.0-36.0); Mean Corpuscular Volume 84.3 fL (78.0-98.0); Mean Platelet Volume 9.7 fL (7.4-10.4); Platelet Count 425 thou/uL (130-400); RBC Distribution Width 16.2 % (11.5-14.5); Red Blood Cell (RBC) Count 3.27 mill/uL (4.20-5.40); White Blood Cell (WBC) Count 15.4 thou/uL (4.8-10.8)
[2021-12-29 06:02] LABS: ALT (SGPT) 12 U/L (8-55); AST (SGOT) 16 U/L (5-34); Albumin 2.9 g/dL (3.4-4.8); Alkaline Phosphatase 139 U/L (40-110); Anion Gap 9 mmol/L (10-20); BUN (Urea Nitrogen) 10 mg/dL (9.8-20.1); Bilirubin, Total 0.3 mg/dL (0.2-1.2); Calc. Creatinine Clearance 70 mL/min (70-130); Calcium 8.4 mg/dL (7.8-10.44); Carbon Dioxide 26 mmol/L (23-31); Chloride 107 mmol/L (98-107); Estimated GFR 82; Globulin 3.5 g/dL (2.4-3.5); Glucose 152 mg/dL (83-110); Magnesium 2.3 mg/dL (1.6-2.6); Potassium 3.4 mmol/L (3.5-5.1); Protein, Total 6.4 g/dL (5.8-8.1); Sodium 139 mmol/L (136-145)
[2021-12-29] MEDS: Sodium Chloride 0.9% 1,000 ML IV SCH ×2 (09:02→19:10)
[2021-12-29] MEDS: Gabapentin 300 MG CAP PO SCH ×3 (09:03→19:34)
[2021-12-29] MEDS: Enoxaparin Sodium 40 MG/0.4 ML SYRINGE SC SCH (09:04)
[2021-12-29] MEDS ORDERED: Vancomycin 1.5 GRAM/300 ML BAG 1.5 GM in Premix Bag 1 BAG IVPB SCH (20:00)
[2021-12-30] MEDS: Piperacillin/Tazobactam 3.375 GM in Sodium Chloride 0.9% 100 ML IVPB SCH ×2 (04:09→13:18)
[2021-12-30] MEDS: Sodium Chloride 0.9% 1,000 ML IV SCH ×2 (04:09→13:46)
[2021-12-30 05:03] LABS: ALT (SGPT) 9 U/L (8-55); AST (SGOT) 15 U/L (5-34); Albumin 2.6 g/dL (3.4-4.8); Alkaline Phosphatase 129 U/L (40-110); Anion Gap 12 mmol/L (10-20); BUN (Urea Nitrogen) 11 mg/dL (9.8-20.1); Bilirubin, Total 0.3 mg/dL (0.2-1.2); Calc. Creatinine Clearance 66 mL/min (70-130); Calcium 8.2 mg/dL (7.8-10.44); Carbon Dioxide 24 mmol/L (23-31); Chloride 109 mmol/L (98-107); Estimated GFR 77; Glucose 99 mg/dL (83-110); Protein, Total 5.6 g/dL (5.8-8.1); Sodium 142 mmol/L (136-145)
[2021-12-30 05:45] LABS: Anisocytosis SLIGHT = 6-15 cells (100X) (0-5/hpf); Band 5 % (5-11); Eosinophils 3 % (0-10); Hemoglobin 8.2 g/dL (12.0-16.0); Hypochromia SLIGHT = 6-15 cells (100X) (0-5/hpf); Lymphocytes 27 % (21-51); MDiff Complete? YES; Mean Corpuscular HGB CONC 30.4 g/dL (32.0-36.0); Mean Corpuscular Hemoglobin 25.8 pg (27.0-31.0); Mean Platelet Volume 9.8 fL (7.4-10.4); Monocytes 15 % (0-10); Neutrophil 48 % (42-75); Platelet Count 350 thou/uL (130-400); Platelet Morphology Comment Appears Adequate; Polychromasia SLIGHT = 2-3 cells (100X) (0-2/hpf); RBC Distribution Width 16.2 % (11.5-14.5); Red Blood Cell (RBC) Count 3.16 mill/uL (4.20-5.40); Target Cells SLIGHT = 2-5 cells (100X) (0-1/hpf)
[2021-12-30] MEDS ORDERED: Potassium Chloride 20 MEQ TAB PO SCH (07:45)
[2021-12-30] MEDS: Potassium Chloride 20 MEQ TAB PO SCH ×2 (09:06→13:18)
[2021-12-30] MEDS: Gabapentin 300 MG CAP PO SCH ×2 (09:06→15:48)
[2021-12-30] MEDS: Enoxaparin Sodium 40 MG/0.4 ML SYRINGE SC SCH (09:07)
[2021-12-30 16:17] VITALS: BP 148/82; TEMP 98.9
== END 2021-12-30 16:15 | disposition home or self-care (01) | DRG 872 ==
LOC: ERS 15:10 → T4-A 19:08
PROVIDERS: ADMIT Internal Medicine; ATTEND Internal Medicine
DX: A41.9 Sepsis, unspecified organism (principal); Z66 Do not resuscitate; Z51.5 Encounter for palliative care; Z20.822 Contact with and (suspected) exposure to COVID-19; N39.0 Urinary tract infection, site not specified; C18.1 Malignant neoplasm of appendix; C79.51 Secondary malignant neoplasm of bone; C79.82 Secondary malignant neoplasm of genital organs; E83.42 Hypomagnesemia; E87.6 Hypokalemia; D64.9 Anemia, unspecified; I10 Essential (primary) hypertension; K21.9 Gastro-esophageal reflux disease without esophagitis; R19.09 Other intra-abdominal and pelvic swelling, mass and lump; Z88.2 Allergy status to sulfonamides; Z88.8 Allergy status to other drugs, medicaments and biological substances; Z88.6 Allergy status to analgesic agent; Z88.1 Allergy status to other antibiotic agents; Z91.041 Radiographic dye allergy status; Z79.899 Other long term (current) drug therapy; Z79.1 Long term (current) use of non-steroidal anti-inflammatories (NSAID); Z90.49 Acquired absence of other specified parts of digestive tract; Z90.710 Acquired absence of both cervix and uterus; Z90.89 Acquired absence of other organs; Z98.51 Tubal ligation status; Z98.890 Other specified postprocedural states; Z90.722 Acquired absence of ovaries, bilateral; Z90.81 Acquired absence of spleen; Z85.09 Personal history of malignant neoplasm of other digestive organs; Z85.43 Personal history of malignant neoplasm of ovary; Z86.718 Personal history of other venous thrombosis and embolism
CPT/HCPCS: 36415; 74177; 80053; 81003; 81015; 83605; 83690; 83735; 85025; 87040; 87086; 94760; 96365; 96366; 96367; 96375; J0692; J1200; J2543; J2920; J3370; J3475; J3490; J7050; Q9967; S0028; U0003; U0005